=== PATIENT | female | born 1980 | race American Indian/Alaskan Native ===

== ENCOUNTER 2017-06-24 19:30 | Inpatient (IN) | payer MEDICAID ==
--- NOTE | 2017-06-24 20:02 | ED PDOC ---
Arrival/HPI - General Historian: Patient <Gt Nugent - Last Filed: 06/25/17 14:23> <Michoacano Dela Cruz - Last Filed: 06/28/17 09:46> - General Chief Complaint: Pain, Chronic Time Seen by Provider: 06/24/17 19:47 - History of Present Illness Narrative History of Present Illness (Text): 06/24/17 20:05 37 y/o female, send in from [facility] for admission and further evaluation, amoxicillin allergy, biba for admission due to she is unable to walk. pt. has been follow up by her own pmd for unable to walk with back pain and unable stand on her bilateral lower extremities since 06/12/2017, send to the ER because she is unable to stand with occasional pain, no palpitation, no rash, no numbness or tingling, no slurred speech or dizziness, no other medical or psychological complaints. (Gt Nugent) Past Medical History - Provider Review Nursing Documentation Reviewed: Yes - Psychiatric Hx Substance Use: No <Gt Nugent - Last Filed: 06/25/17 14:23> Family/Social History - Physician Review Nursing Documentation Reviewed: Yes Family/Social History: Unknown Family HX Smoking Status: n Hx Alcohol Use: No Hx Substance Use: No <Gt Nugent - Last Filed: 06/25/17 14:23> Allergies/Home Meds <Gt Nugent - Last Filed: 06/25/17 14:23> <Michoacano Dela Cruz - Last Filed: 06/28/17 09:46> Allergies/Adverse Reactions: Allergies amoxicillin Allergy (Verified 06/24/17 19:47) SHORTNESS OF BREATH Home Medications: Home Meds Medication Instructions Recorded Confirmed Cyclobenzaprine HCl 5 mg PO TID 06/25/17 06/25/17 [Cyclobenzaprine HCl] Folic Acid [Folic Acid] 1 mg PO DAILY 06/25/17 06/25/17 Thiamine HCl [B-1] 100 mg PO DAILY 06/25/17 06/25/17 Review of Systems - Review of Systems Constitutional: absent: Fatigue, Fevers Eyes: absent: Vision Changes ENT: absent: Hearing Changes Respiratory: absent: SOB, Cough Cardiovascular: absent: Chest Pain Gastrointestinal: absent: Abdominal Pain, Nausea, Vomiting Musculoskeletal: Back Pain. absent: Arthralgias Skin: absent: Rash, Pruritis Neurological: absent: Headache, Dizziness Psychiatric: absent: Anxiety, Depression, Suicidal Ideation <Gt Nugent - Last Filed: 06/25/17 14:23> Physical Exam Vital Signs Reviewed: Yes Temperature: Afebrile Blood Pressure: Normal Pulse: Regular Respiratory Rate: Normal Appearance: Positive for: Well-Appearing, Non-Toxic Pain Distress: Mild Mental Status: Positive for: Alert and Oriented X 3 - Systems Exam Head: Present: Atraumatic, Normocephalic Pupils: Present: PERRL Extroacular Muscles: Present: EOMI Conjunctiva: Present: Normal Mouth: Present: Moist Mucous Membranes Neck: Present: Normal Range of Motion Respiratory/Chest: Present: Clear to Auscultation, Good Air Exchange. No: Respiratory Distress, Accessory Muscle Use Cardiovascular: Present: Regular Rate and Rhythm, Normal S1, S2. No: Murmurs Abdomen: Present: Normal Bowel Sounds. No: Tenderness, Distention, Peritoneal Signs Back: Present: Normal Inspection Upper Extremity: Present: Normal Inspection. No: Cyanosis, Edema Lower Extremity: Present: Normal Inspection, NORMAL PULSES, Normal ROM, Capillary Refill < 2 s. No: Edema, CALF TENDERNESS, Tenderness, Swelling, Deformity Neurological: Present: GCS=15, Speech Normal, Motor Func Grossly Intact, Memory Normal, Other (Bilateral lower extremities motor 5/5. ) Skin: Present: Warm, Dry, Normal Color. No: Rashes Psychiatric: Present: Alert, Oriented x 3, Normal Insight, Normal Concentration <Gt Nugent - Last Filed: 06/25/17 14:23> Vital Signs Temp Pulse Resp BP Pulse Ox 06/25/17 03:00 78 16 128/82 100 06/24/17 23:30 80 18 135/82 100 06/24/17 19:40 98.8 F 97 H 18 133/70 99 Medical Decision Making - Lab Interpretations I have reviewed the lab results: Yes - RAD Interpretation Marriage And Family Teacher: Radiologist - EKG Interpretation Interpreted by ED Physician: Yes <Gt Nugent - Last Filed: 06/25/17 14:23> <Michoacano Dela Cruz - Last Filed: 06/28/17 09:46> ED Course and Treatment: 06/24/17 20:27 -Labs -CT head/lumbar -IVF -Observe and reassess 06/25/17 00:29 -I spoke to the covering doctor for Dr. Castellano (send the patient here to the ER ) which Dr. Monique is covering, request admission to the hospitalist for full neurological evaluation. -Labs are non-significant -Pt. refused pain med -CT Head: No definite acute intracranial abnormality. -CT Lumbar: Mild central canal stenosis L4-L5 level. Mild neuroforaminal narrowing at L4-L5, and L5-S1 levels. 06/25/17 02:10 -I spoke to DR. Peterson and DR. Dela Cruz about the case, agreed this needs to be observed over night as she should get neurological evaluation with possibility for MS or GBS. There is no emergency for spinal tap. (Gt Nugent) - Lab Interpretations Lab Results: 06/26/17 06:30 06/26/17 06:30 Lab Results 06/26/17 06:30: Total Creatine Kinase 54 06/26/17 06:30: Sodium 140, Potassium 4.0, Chloride 106, Carbon Dioxide 25, Anion Gap 13, BUN 8, Creatinine 0.7, Est GFR ( Amer) > 60, Est GFR (Non- Af Amer) > 60, Random Glucose 83, Calcium 9.3, Phosphorus 4.7 H, Magnesium 1.9, Total Bilirubin 0.5, AST 31, ALT 35, Alkaline Phosphatase 71, Total Protein 7.2 , Albumin 3.8, Globulin 3.3, Albumin/Globulin Ratio 1.1 06/26/17 06:30: WBC 6.2, RBC 3.45 L, Hgb 12.1, Hct 36.1, MCV 104.6, MCH 35.1 H, MCHC 33.5, RDW 13.8, Plt Count 389, MPV 10.2, Gran % 44.3 L, Lymph % (Auto) 44.2 H, [place] % (Auto) 8.8 H, Eos % (Auto) 2.1, Baso % (Auto) 0.6, Gran # 2.73, Lymph # 2.7, [place] # 0.5, Eos # 0.1, Baso # 0.04 06/25/17 08:00: TSH 3rd Generation 1.16 06/25/17 06:45: Urine Color Yellow, Urine Appearance Clear, Urine pH 6.0, Ur Specific [place] 1.025, Urine Protein Negative, Urine Glucose (UA) Negative, Urine Ketones 15 H, Urine Blood Trace-intact H, Urine Nitrate Negative, Urine Bilirubin Negative, Urine Urobilinogen 0.2, Ur Leukocyte Esterase Trace H, Urine RBC 0 - 2, Urine WBC 0 - 2, Ur Epithelial Cells 4 - 5, Urine Bacteria Few 06/25/17 06:20: WBC 6.5, RBC 3.38 L, Hgb 11.8 L, Hct 35.5 L, MCV 105.0, MCH 34.9 , MCHC 33.2, RDW 13.7, Plt Count 381, MPV 10.5, Gran % 54.4, Lymph % (Auto) 34.6 , [place] % (Auto) 9.1 H, Eos % (Auto) 1.7, Baso % (Auto) 0.2, Gran # 3.52, Lymph # 2.2, [place] # 0.6, Eos # 0.1, Baso # 0.01 06/25/17 06:20: Sodium 141, Potassium 4.1, Chloride 106, Carbon Dioxide 25, Anion Gap 14, BUN 11, Creatinine 0.7, Est GFR ( Amer) > 60, Est GFR (Non- Af Amer) > 60, Random Glucose 81, Calcium 9.4, Phosphorus 4.3, Magnesium 2.0, Total Bilirubin 0.4, AST 31, ALT 42, Alkaline Phosphatase 76, Total Creatine Kinase 62, Total Protein 7.1, Albumin 3.8, Globulin 3.3, Albumin/Globulin Ratio 1.2, Vitamin B12 690, Folate 11.0 06/24/17 20:40: Beta HCG, Quant < 2.39 06/24/17 20:40: WBC 7.2, RBC 3.53, Hgb 12.4, Hct 37.0, MCV 104.8, MCH 35.1 H, MCHC 33.5, RDW 13.6, Plt Count 388, MPV 10.2, Gran % 50.4, Lymph % (Auto) 38.0 H , [place] % (Auto) 8.9 H, Eos % (Auto) 2.1, Baso % (Auto) 0.6, Gran # 3.65, Lymph # 2.7, [place] # 0.6, Eos # 0.2, Baso # 0.04 06/24/17 20:40: Sodium 140, Potassium 3.9, Chloride 106, Carbon Dioxide 23, Anion Gap 15, BUN 13, Creatinine 0.7, Est GFR ( Amer) > 60, Est GFR (Non- Af Amer) > 60, Random Glucose 93, Calcium 9.5, Total Bilirubin 0.3, AST 33, ALT 40, Alkaline Phosphatase 80, Total Creatine Kinase 75, Total Protein 7.6, Albumin 4.0, Globulin 3.6, Albumin/Globulin Ratio 1.1 - RAD Interpretation Radiology Orders: 06/24/17 20:12 HEAD W/O CONTRAST [CT] Stat LUMBAR SPINE W/O CONTRAST [CT] Stat CHEST ONE VIEW [RAD] Stat 06/25/17 12:39 BRAIN W & WO CONTRAST [MRI] Routine CT Head: FINDINGS: Brain: No intracranial hemorrhage. No mass. No definite edema. Ventricles: No hydrocephalus. Bones/joints: No acute fracture. Soft tissues: Unremarkable. Sinuses: No acute sinusitis. Mastoid air cells: No mastoid effusion. Orbits: Unremarkable as visualized. IMPRESSION: 1. No definite acute intracranial abnormality. Thank you for allowing us to participate in the care of your patient. Dictated and Authenticated by: Kenn Dominguez MD 06/24/2017 11:34 PM Eastern Time ([place] & [place]) CT Lumbar: FINDINGS: Vertebrae: No acute fracture. Facet osteoarthrosis within lower lumbar spine. Discs/spinal canal/neural foramina: Mild central canal stenosis L4-L5 level. Mild neuroforaminal narrowing at L4-L5, and L5-S1 levels. Soft tissues: Partial ossification of anterior longitudinal ligament. IMPRESSION: 1. No fracture. 2. If symptoms persist, consider MRI for further evaluation. 3. Incidental/non-acute findings are described above. Thank you for allowing us to participate in the care of your patient. Dictated and Authenticated by: Kenn Dominguez MD 06/24/2017 11:41 PM Eastern Time ([place] & [place]) Chest xray: no active disease (Gt Nugent) - EKG Interpretation EKG Interpretation (Text): 06/25/17 01:17 (Gt Nugent) - Medication Orders Current Medication Orders: Acetaminophen/Butalbital/Caffeine (Fioricet) 1 tab PO Q4H PRN PRN Reason: Headache Docusate Sodium (Colace) 100 mg PO TID [facility] Last Admin: 06/27/17 18:16 Dose: 100 mg Last Bowel Movement Document 06/27/17 18:16 ID (Rec: 06/27/17 18:16 ID [id number]) Last Bowel Movement Last Bowel Movement 06/27/17 Famotidine (Pepcid) 20 mg PO 1000,2200 [facility] Last Admin: 06/27/17 23:37 Dose: Not Given Non-Admin Reason: Patient Refused Heparin Sodium (Porcine) (Heparin) 5,000 units SC Q8 ABHIJIT PRN Reason: Protocol Last Admin: 06/28/17 06:00 Dose: Immune Globulin 40 gm/ (Miscellaneous) 400 mls @ 1 mls/min IV DAILY ABHIJIT Stop: 06/29/17 23:55 Last Admin: 06/27/17 23:34 Dose: 1 mls/min eMAR Start Stop Document 06/27/17 23:34 [employer]OR [employer]CTION (Rec: 06/27/17 23:35 SUPERVISOR INSPECTION [id number]) Intravenous Solution Start Date 06/27/17 Start Time 23:35 Ibuprofen (Motrin Tab) 600 mg PO Q6H PRN PRN Reason: Pain, Mild (1-3) Last Admin: 06/27/17 01:11 Dose: 600 mg MAR Pain/Vitals Document 06/27/17 01:11 KP (Rec: 06/27/17 01:11 [id number]) Pain Reassessment Is This A Pain ReAssessment? No Sleep Is patient sleeping during reassessment? No Presence of Pain Presence of Pain Yes Location Pain Location Body Site Back Re-Assess: [facility] Pain/Vitals Document 06/27/17 02:11 KP (Rec: 06/27/17 03:00 KP [id number] Pain Reassessment Is This A Pain ReAssessment? Yes Sleep Is patient sleeping during reassessment? No Presence of Pain Presence of Pain No Discontinued Medications Ibuprofen (Motrin Tab) 600 mg PO STAT STA Stop: 06/25/17 01:16 Last Admin: 06/27/17 10:59 Dose: 600 mg [facility] Pain/Vitals Document 06/27/17 10:59 ID (Rec: 06/27/17 11:00 ID [id number]) Pain Reassessment Is This A Pain ReAssessment? No Sleep Is patient sleeping during reassessment? No Presence of Pain Presence of Pain Yes Pain Scale Used Pain Scale Used Numeric Location Pain Location Body Site Generalized Description Intermittent Scale Used Numeric Pain Behavior Moaning Facial Grimacing Alleviating Factors Medication Re-Assess: [facility] Pain/Vitals Document 06/27/17 11:59 ID (Rec: 06/27/17 12:39 ID [id number]) Pain Reassessment Is This A Pain ReAssessment? No Sleep Is patient sleeping during reassessment? No Presence of Pain Presence of Pain No - PA / OPHTHALMIC DISPENSER / Resident Statement / has reviewed & agrees with the documentation as recorded. <Gt Nugent - Last Filed: 06/25/17 14:23> - PA / OPHTHALMIC DISPENSER / Resident Statement / has reviewed & agrees with the documentation as recorded. <Michoacano Dela Cruz - Last Filed: 06/28/17 09:46> Disposition/Present on Arrival - Present on Arrival Any Indicators Present on Arrival: No History of DVT/PE: No History of Uncontrolled Diabetes: No Urinary Catheter: No History of Decub. Ulcer: No History Surgical Site Infection Following: None - Disposition Have Diagnosis and Disposition been Completed?: Yes Disposition Time: 00:30 Patient Plan: Observation <Gt Nugent - Last Filed: 06/25/17 14:23> <Michoacano Dela Cruz - Last Filed: 06/28/17 09:46> - Disposition Diagnosis: Low back pain, Spinal stenosis Disposition: HOSPITALIZED Patient Problems: Current Active Problems Problem Status Onset Low back pain Acute Spinal stenosis Acute Condition: STABLE
[2017-06-24 20:52] LABS: BASO # 0.04 K/mm3 (0.0-2.0); BASO % 0.6 % (0.0-3.0); EOS # 0.2 (0.0-0.7); EOS % 2.1 % (1.5-5.0); GRAN # 3.65 (1.4-6.5); GRAN % 50.4 % (50.0-68.0); LYMPH # 2.7 (1.2-3.4); MEAN CELL VOLUME 104.8 fl (80.0-105.0); MEAN CORPUSCULAR HEMOGLOBIN 35.1 pg (25.0-35.0); MEAN CORPUSCULAR HGB CONC 33.5 g/dl (31.0-37.0); MEAN PLATELET VOLUME 10.2 fl (7.0-11.0); MONO # 0.6 (0.1-0.6); MONO % 8.9 % (1.0-6.0); RED CELL DISTRIBUTION WIDTH 13.6 % (11.5-14.5); WHITE BLOOD COUNT 7.2 10^3/ul (4.5-11.0)
[2017-06-24 21:08] LABS: ALB/GLOB RATIO 1.1 (1.1-1.8); ALKALINE PHOSPHATASE 80 U/L (38-126); ALT/SGPT 40 U/L (7-56); AST/SGOT 33 U/L (14-36); BILIRUBIN,TOTAL 0.3 mg/dL (0.2-1.3); BLOOD UREA NITROGEN 13 mg/dL (7-21); CALCIUM 9.5 mg/dL (8.4-10.5); CARBON DIOXIDE 23 mmol/L (21-33); CHLORIDE 106 mmol/L (98-107); GFR AFRICAN-AMERICAN > 60; GLUCOSE,RANDOM 93 mg/dL (70-110); POTASSIUM 3.9 mmol/L (3.6-5.0); SODIUM 140 mmol/L (132-148); TOTAL PROTEIN 7.6 g/dL (5.8-8.3)
--- NOTE | 2017-06-24 23:34 | CT ---
EXAM: CT Head Without Intravenous Contrast CLINICAL HISTORY: 37 years old, female; Signs and symptoms; Walking, difficulty; Additional info: Unable to walk since 06/12/2017 TECHNIQUE: Axial computed tomography images of the head/brain without intravenous contrast. All CT scans at this facility use one or more dose reduction techniques, viz.: automated exposure control; ma/kV adjustment per patient size (including targeted exams where dose is matched to indication; i.e. head); or iterative reconstruction technique. COMPARISON: No relevant prior studies available. FINDINGS: Brain: No intracranial hemorrhage. No mass. No definite edema. Ventricles: No hydrocephalus. Bones/joints: No acute fracture. Soft tissues: Unremarkable. Sinuses: No acute sinusitis. Mastoid air cells: No mastoid effusion. Orbits: Unremarkable as visualized. IMPRESSION: 1. No definite acute intracranial abnormality.
--- NOTE | 2017-06-24 23:42 | CT ---
EXAM: CT Lumbar Spine Without Intravenous Contrast CLINICAL HISTORY: 37 years old, female; Signs and symptoms; Other: Unable to walk since 06/12/17; Additional info: Unable to walk since 06/12/2017 TECHNIQUE: Axial computed tomography images of the lumbar spine without intravenous contrast. All CT scans at this facility use one or more dose reduction techniques, viz.: automated exposure control; ma/kV adjustment per patient size (including targeted exams where dose is matched to indication; i.e. head); or iterative reconstruction technique. Coronal and sagittal reformatted images were created and reviewed. COMPARISON: No relevant prior studies available. FINDINGS: Vertebrae: No acute fracture. Facet osteoarthrosis within lower lumbar spine. Discs/spinal canal/neural foramina: Mild central canal stenosis L4-L5 level. Mild neuroforaminal narrowing at L4-L5, and L5-S1 levels. Soft tissues: Partial ossification of anterior longitudinal ligament. IMPRESSION: 1. No fracture. 2. If symptoms persist, consider MRI for further evaluation. 3. Incidental/non-acute findings are described above.
--- NOTE | 2017-06-25 04:38 | CP.PCM.HP ---
<Heena Cardenas - Last Filed: 06/25/17 04:29> History of Present Illness - History of Present Illness History of Present Illness: Heena Cardenas DO PGY1 - Internal Medicine H&P CC: Weak legs HPI: 37 yo F with no significant PMH presents to the ER by ambulance brought from [facility], complaining of progressive weakness in all four extremities. Weakness started 9 days ago, which was the last time she was able to walk. She was previously admitted to [facility] where she had an extensive workup done, which was reportedly negative. She was discharged from [facility] about one week ago and sent to [facility] for physical therapy. She reports continued inability to walk or bear weight on her legs beyond a few seconds, as well as progressive weakness in her arms. She denies any headache, vision changes, numbness, parasthesias. She reports that weakness is worse on the left side. She denies recent illness, travel, sick contacts, bug bites. She also denies any major life changes or new stressors. She is complaining of occasional back spasms that radiate from her head all the way to her toes, which she has had before, though is occuring more frequently; no constant back pain or pain with movements. She denies any fever, chills, nausea, vomiting, diarrhea, chest pain, shortness of breath, abdominal pain, dysuria, hematuria, joint pains, confusion, depression/anxiety, trouble sleeping, heat/cold intolerance, urinary/bowel incontinence, saddle anaesthesia. Remainder of 12 point ROS negative. The weakness was progressive in onset. PMH: None PSH: Denies Soc: Denies tobacco, alcohol, or illicits FHx: Denies All: Amoxicillin Present on Admission - Present on Admission Any Indicators Present on Admission: No Past Patient History - Past Social History Smoking Status: n - PSYCHIATRIC Hx Substance Use: No Meds Allergies/Adverse Reactions: Allergies Allergy/AdvReac Type Severity Reaction Status Date / Time amoxicillin Allergy SHORTNESS Verified 06/24/17 19:47 OF BREATH Physical Exam - Constitutional Appears: Non-toxic, No Acute Distress Additional comments: Morbidly obese - Head Exam Head Exam: ATRAUMATIC, NORMOCEPHALIC - Eye Exam Eye Exam: EOMI, Normal appearance, PERRL Pupil Exam: NORMAL ACCOMODATION - ENT Exam ENT Exam: Mucous Membranes Moist - Neck Exam Neck exam: Positive for: Full Rom, Normal Inspection. Negative for: Meningismus - Respiratory Exam Respiratory Exam: Clear to Auscultation Bilateral, NORMAL BREATHING PATTERN - Cardiovascular Exam Cardiovascular Exam: RRR, +S1, +S2 - GI/Abdominal Exam GI & Abdominal Exam: Normal Bowel Sounds, Soft. absent: Distended, Firm, Rebound, Rigid, Tenderness - Extremities Exam Extremities exam: Positive for: full ROM, normal inspection. Negative for: calf tenderness, joint swelling, pedal edema, tenderness - Back Exam Back exam: muscle spasm. 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 Sensation grossly intact, with good sharp/dull discrimination Patient is spontaneously moving and resting all four extremities normally, unconciously; when assessed directly, patient appears to have poor control of her movements - Psychiatric Exam Psychiatric exam: Normal Affect, Normal Mood - Skin Skin Exam: Dry, Intact, Normal Color Results - Vital Signs Recent Vital Signs: Last Vital Signs Temp 98.8 F 06/24/17 19:40 Pulse 78 06/25/17 03:00 Resp 16 06/25/17 03:00 BP 128/82 06/25/17 03:00 Pulse Ox 100 06/25/17 03:00 - Labs Result Diagrams: 06/24/17 20:40 06/24/17 20:40 Assessment & Plan - Assessment and Plan (Free Text) Assessment: 37 yo F with no significant PMH who presents for quadriparesis, progressive, for the past 9 days. Previously worked up at [facility] and was undergoing physical therapy at [facility] in [facility] Plan Quadriparesis - Patient has total inability to bear her own weight, walk, or exhibit strength or fine motor control of b/l UE, with marked L finger to nose dysmetria; started 9 days ago - CT head and lumbar spine in ER negative - Intake labs and vital signs unremarkable - Will attempt to obtain prior records from [facility] prior to further workup; consider spinal tap if not previously done to r/o infection, GBS - High risk fall precautions - PT/OT eval and treat - Neurology consult requested, appreciate recs GI/DVT Ppx - Pepcid, heparin Patient seen, discussed, and reviewed with attending <Katya Peterson - Last Filed: 06/25/17 05:41> Results - Vital Signs Recent Vital Signs: Last Vital Signs Temp 98.2 F 06/25/17 04:27 Pulse 102 H 06/25/17 04:27 Resp 20 06/25/17 04:27 BP 145/99 H 06/25/17 04:27 Pulse Ox 100 06/25/17 03:00 - Labs Result Diagrams: 06/24/17 20:40 06/24/17 20:40 Attending/Attestation - Attestation I have personally seen and examined this patient.: Yes I have fully participated in the care of the patient.: Yes I have reviewed all pertinent clinical information: Yes Notes (Text): 06/25/17 05:41 Patient was seen in room # 9 when she was in the ER. Agree with history, physical examination, assessment and plan.
[2017-06-25 07:01] LABS: ALB/GLOB RATIO 1.2 (1.1-1.8); ALKALINE PHOSPHATASE 76 U/L (38-126); ALT/SGPT 42 U/L (7-56); AST/SGOT 31 U/L (14-36); BILIRUBIN,TOTAL 0.4 mg/dL (0.2-1.3); BLOOD UREA NITROGEN 11 mg/dL (7-21); CALCIUM 9.4 mg/dL (8.4-10.5); CARBON DIOXIDE 25 mmol/L (21-33); CHLORIDE 106 mmol/L (98-107); GFR AFRICAN-AMERICAN > 60; GLUCOSE,RANDOM 81 mg/dL (70-110); PHOSPHOROUS 4.3 mg/dL (2.5-4.5); POTASSIUM 4.1 mmol/L (3.6-5.0); SODIUM 141 mmol/L (132-148); TOTAL PROTEIN 7.1 g/dL (5.8-8.3)
[2017-06-25 07:17] LABS: BASO # 0.01 K/mm3 (0.0-2.0); BASO % 0.2 % (0.0-3.0); EOS # 0.1 (0.0-0.7); EOS % 1.7 % (1.5-5.0); GRAN # 3.52 (1.4-6.5); GRAN % 54.4 % (50.0-68.0); HEMATOCRIT 35.5 % (36.0-48.0); LYMPH # 2.2 (1.2-3.4); LYMPH % 34.6 % (22.0-35.0); MEAN CORPUSCULAR HEMOGLOBIN 34.9 pg (25.0-35.0); MEAN CORPUSCULAR HGB CONC 33.2 g/dl (31.0-37.0); MEAN PLATELET VOLUME 10.5 fl (7.0-11.0); MONO # 0.6 (0.1-0.6); MONO % 9.1 % (1.0-6.0); RED CELL DISTRIBUTION WIDTH 13.7 % (11.5-14.5); WHITE BLOOD COUNT 6.5 10^3/ul (4.5-11.0)
[2017-06-25 07:18] LABS: URINE BILIRUBIN NEGATIVE (NEGATIVE); URINE BLOOD TRACE-INTACT (NEGATIVE); URINE GLUCOSE (UA) NEGATIVE (NEGATIVE); URINE KETONE 15 mg/dL (NEGATIVE); URINE LEUKOCYTE ESTERASE TRACE Leu/uL (NEGATIVE); URINE PROTEIN NEGATIVE mg/dL (<30 mg/dL); URINE UROBILINOGEN 0.2 E.U./dL (<1 E.U./dL)
[2017-06-25 07:46] LABS: URINE APPEARANCE CLEAR (CLEAR); URINE BACTERIA FEW (NEG); URINE COLOR YELLOW (YELLOW); URINE RBC 0 - 2 /hpf (0-2); URINE WBC 0 - 2 /hpf (0-6)
--- NOTE | 2017-06-25 13:45 | RAD ---
PROCEDURE: CHEST RADIOGRAPH, 1 VIEW HISTORY: medical clearance COMPARISON: None available. FINDINGS: LUNGS: Clear. PLEURA: No pneumothorax or pleural fluid seen. CARDIOVASCULAR: Normal. OSSEOUS STRUCTURES: No significant abnormalities. VISUALIZED UPPER ABDOMEN: Normal. OTHER FINDINGS: None. IMPRESSION: No active disease.
[2017-06-25] MEDS ORDERED: Gadodiamide 287 MG/ML VIAL (20ML) IV ONE (13:54)
--- NOTE | 2017-06-25 16:08 | MRI ---
PROCEDURE: MRI of the brain dated 06/25/2017. HISTORY: Ataxia. COMPARISON: Comparison made with CT scan brain dated 06/24/2017. TECHNIQUE: Multiplanar, multisequence MR images of the brain were obtained with and without intravenous contrast enhancement. 20 cc Omniscan injected during this procedure. FINDINGS: HEMORRHAGE: No acute parenchymal, subarachnoid nor extra-axial hemorrhage. No evidence of hemosiderin deposition identified on gradient echo weighted sequence. DWI: No evidence of an acute or early subacute infarction seen on diffusion imaging. . BRAIN PARENCHYMA: No focal areas of abnormal signal seen within the substance of the brain. No evidence of enhancing parenchymal nor extra-axial masses or collections. No evidence of unusual meningeal enhancement. . Ventricular and sulcal size within range of normal for this patient's stated age. ENHANCEMENT: No abnormal intracranial enhancement as above. . VENTRICLES: No obstructive hydrocephalus. CRANIUM: There are no acute calvarial abnormalities. ORBITS: Orbits and contents appear grossly unremarkable. PARANASAL SINUSES/MASTOIDS: Clear VASCULAR SYSTEM: The visualized major vascular flow voids at skull base patent. OTHER FINDINGS: None . IMPRESSION: No acute intracranial hemorrhage or infarct. There are no enhancing lesions.
--- NOTE | 2017-06-25 22:24 | CON ---
HISTORY OF PRESENT ILLNESS: This is a 37-year-old black female with no significant past medical history, came here from long term and with a progressive complaining of weakness and the patient was previously admitted to [facility], workup done, was discharged to long term and there she felt weakness and numbness and paresthesia and brought back to [facility]. MRI of the head was done, did not show any intracranial lesion. PAST MEDICAL HISTORY: Not significant. SOCIAL HISTORY: Does not smoke. Does not drink. ALLERGY: ALLERGIC TO AMOXICILLIN. PHYSICAL EXAMINATION: VITAL SIGNS: Blood pressure 128/82. HEENT: Normocephalic, atraumatic. NECK: Supple. NEUROLOGIC: Awake, alert, oriented x3. No aphasia. Cranial nerves II through XII were tested. Pupils reactive. EOM intact. No facial asymmetry. Tongue midline. Motor examination: Spontaneous movement of the extremities noted. Deep tendon reflexes 1+. Both plantars are downgoing. Sensory appears intact. Cerebellar gait deferred. IMPRESSION: A 37-year-old black female who was recently discharged from [facility] to [facility], undergoing physical therapy, felt weak, brought here for further workup. MRI of the head was done, which was reported negative. Workup in progress. We will follow up. Christiano Rose MD
[2017-06-26 07:14] LABS: BASO # 0.04 K/mm3 (0.0-2.0); BASO % 0.6 % (0.0-3.0); EOS # 0.1 (0.0-0.7); EOS % 2.1 % (1.5-5.0); GRAN # 2.73 (1.4-6.5); GRAN % 44.3 % (50.0-68.0); HEMATOCRIT 36.1 % (36.0-48.0); LYMPH # 2.7 (1.2-3.4); LYMPH % 44.2 % (22.0-35.0); MEAN CELL VOLUME 104.6 fl (80.0-105.0); MEAN CORPUSCULAR HEMOGLOBIN 35.1 pg (25.0-35.0); MEAN CORPUSCULAR HGB CONC 33.5 g/dl (31.0-37.0); MEAN PLATELET VOLUME 10.2 fl (7.0-11.0); MONO # 0.5 (0.1-0.6); MONO % 8.8 % (1.0-6.0); RED CELL DISTRIBUTION WIDTH 13.8 % (11.5-14.5); WHITE BLOOD COUNT 6.2 10^3/ul (4.5-11.0)
[2017-06-26 08:03] LABS: ALB/GLOB RATIO 1.1 (1.1-1.8); ALKALINE PHOSPHATASE 71 U/L (38-126); ALT/SGPT 35 U/L (7-56); AST/SGOT 31 U/L (14-36); BILIRUBIN,TOTAL 0.5 mg/dL (0.2-1.3); BLOOD UREA NITROGEN 8 mg/dL (7-21); CALCIUM 9.3 mg/dL (8.4-10.5); CARBON DIOXIDE 25 mmol/L (21-33); CHLORIDE 106 mmol/L (98-107); GFR AFRICAN-AMERICAN > 60; GLUCOSE,RANDOM 83 mg/dL (70-110); MAGNESIUM 1.9 mg/dL (1.7-2.2); PHOSPHOROUS 4.7 mg/dL (2.5-4.5); SODIUM 140 mmol/L (132-148); TOTAL PROTEIN 7.2 g/dL (5.8-8.3)
--- NOTE | 2017-06-26 11:37 | CP.PCM.PN ---
<Rody Garibay - Last Filed: 06/26/17 11:51> Subjective - Date & Time of Evaluation Date of Evaluation: 06/26/17 Time of Evaluation: 11:33 - Subjective Subjective: Rody Garibay, PGY1, Medicine Progress Note for Dr Mcdonald: Patient seen and examined at bedside. As per nursing staff, pt wants to go back to subacute rehab. No acute events overnight. Denies muscle spasms currently, weakness, nausea, vomiting, food intolerance, fatigue, numbness, tingling. 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 Objective - Vital Signs/Intake and Output Vital Signs (last 24 hours): Temp Pulse Resp BP Pulse Ox 98.9 F 91 H 20 132/83 96 06/26/17 10:47 06/26/17 10:47 06/26/17 10:47 06/26/17 10:47 06/26/17 10:47 Intake and Output: 06/26/17 06/26/17 06:59 18:59 Intake Total 240 Balance 240 - Medications Medications: Current Medications Docusate Sodium (Colace) 100 mg PO TID [facility] Last Admin: 06/26/17 10:18 Dose: 100 mg Famotidine (Pepcid) 20 mg PO 1000,2200 [facility] Last Admin: 06/26/17 10:23 Dose: Not Given Heparin Sodium (Porcine) (Heparin) 5,000 units SC Q8 ABHIJIT PRN Reason: Protocol Last Admin: 06/26/17 06:16 Dose: Not Given Ibuprofen (Motrin Tab) 600 mg PO Q6H PRN PRN Reason: Pain, Mild (1-3) Last Admin: 06/25/17 20:49 Dose: 600 mg - Labs Labs: 06/26/17 06:30 06/26/17 06:30 - Constitutional Appears: Non-toxic, No Acute Distress, Older Than Stated Age - Head Exam Head Exam: ATRAUMATIC, NORMOCEPHALIC - Eye Exam Eye Exam: EOMI, PERRL. absent: Conjunctival injection, Nystagmus, Scleral icterus Pupil Exam: NORMAL ACCOMODATION, PERRL. absent: Irregular, Unequal - ENT Exam ENT Exam: Mucous Membranes Moist - Neck Exam Neck Exam: Full ROM - Respiratory Exam Respiratory Exam: Clear to Ausculation Bilateral. absent: Accessory Muscle Use , Chest Wall Tenderness, Decreased Breath Sounds, Respiratory Distress - Cardiovascular Exam Cardiovascular Exam: RRR, +S1, +S2. absent: Murmur - GI/Abdominal Exam GI & Abdominal Exam: Soft, Normal Bowel Sounds. absent: Distended, Tenderness, Mass, Organomegaly, Rebound - Extremities Exam Extremities Exam: Normal Inspection. absent: Calf Tenderness, Pedal Edema - Neurological Exam Neurological Exam: Alert, Awake, CN II-XII Intact, Oriented x3, Reflexes Normal Additional comments: + motor strength 5/5 b/l + Gross sensation intact throughout. 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 Back/body spasms, Inability to ambulate: 2/2 trauma related vs MS vs polymyositis vs Lyme disease vs Vit B12,D, folate deficiency vs hypothyroidism vs acute CVA vs other demyelinating condition (ALS ) vs spine related neuropathy vs psychogenic - Patient has inability to walk and has marked L finger to nose dysmetria; started 9 days ago - Motor strength and sensation intact b/l. - CXR unremarkable. CT head neg. MRI brain neg for any lesions. - lumbar spine shows spinal canal stenosis L4-L5, no herniations. - As per PT, pt was able to stand up yesterday, however, has leg coordination issues. recommend YAMILETH. Will f/u with PT for reeval today since patient states that she feels better and has no spams today. - Vitamin B12, folate and TSH all within normal limits. - Awaiting prior records from [facility], will determine further workup then - Will attempt to obtain prior records from [facility] prior to further workup; consider spinal tap if not previously done to r/o infection, GBS - Consider Lyme serology, HIV/syphilis workup, CPK. - High risk fall precautions - Neurology consult requested, patient is well known to dr Rose from previous admission at [facility]. Awaiting further workup. - If no change in patient's status by PT and no further neuro workup, consider psych eval. GI/DVT Ppx - Pepcid, heparin Patient seen, discussed, and reviewed with Dr Mcdonald. Rody Garibay, PGY1 <Jasen Mcdonald - Last Filed: 06/26/17 16:15> Objective - Vital Signs/Intake and Output Vital Signs (last 24 hours): Temp Pulse Resp BP Pulse Ox 98.9 F 105 H 20 132/83 99 06/26/17 10:47 06/26/17 15:32 06/26/17 10:47 06/26/17 10:47 06/26/17 15:32 Intake and Output: 06/26/17 06/26/17 06:59 18:59 Intake Total 240 Balance 240 - Medications Medications: Current Medications Docusate Sodium (Colace) 100 mg PO TID [facility] Last Admin: 06/26/17 13:13 Dose: 100 mg Famotidine (Pepcid) 20 mg PO 1000,2200 [facility] Last Admin: 06/26/17 10:23 Dose: Not Given Heparin Sodium (Porcine) (Heparin) 5,000 units SC Q8 ABHIJIT PRN Reason: Protocol Last Admin: 06/26/17 13:06 Dose: Not Given Ibuprofen (Motrin Tab) 600 mg PO Q6H PRN PRN Reason: Pain, Mild (1-3) Last Admin: 06/26/17 13:14 Dose: 600 mg - Labs Labs: 06/26/17 06:30 06/26/17 06:30 Attending/Attestation - Attestation I have personally seen and examined this patient.: Yes I have fully participated in the care of the patient.: Yes I have reviewed all pertinent clinical information, including history, physical exam and plan: Yes Notes (Text): 06/26/17 16:11 37 year old female with no significant past medical history who presented with body spasms and difficulty with ambulation. She was previously worked up at [facility] and then sent to [facility] from where she was referred due to persistent symptoms. CT head and MRI brain were negative for acute findings. CT spine showed L4-L5 spinal canal stenosis. PT and OT evaluation were appreciated. Patient was also seen by neurology who recommended for possible LP. Jasen Mcdonald MD Hospitalist.
[2017-06-27 07:26] LABS: BASO # 0.03 K/mm3 (0.0-2.0); BASO % 0.5 % (0.0-3.0); EOS # 0.1 (0.0-0.7); EOS % 2.1 % (1.5-5.0); GRAN # 2.79 (1.4-6.5); GRAN % 47.7 % (50.0-68.0); HEMATOCRIT 36.5 % (36.0-48.0); LYMPH # 2.4 (1.2-3.4); MEAN CORPUSCULAR HEMOGLOBIN 35.3 pg (25.0-35.0); MEAN PLATELET VOLUME 10.2 fl (7.0-11.0); MONO # 0.5 (0.1-0.6); MONO % 8.7 % (1.0-6.0); RED CELL DISTRIBUTION WIDTH 13.7 % (11.5-14.5); WHITE BLOOD COUNT 5.9 10^3/ul (4.5-11.0)
[2017-06-27 07:34] LABS: ALB/GLOB RATIO 1.1 (1.1-1.8); ALKALINE PHOSPHATASE 70 U/L (38-126); ALT/SGPT 38 U/L (7-56); AST/SGOT 26 U/L (14-36); BILIRUBIN,TOTAL 0.3 mg/dL (0.2-1.3); BLOOD UREA NITROGEN 9 mg/dL (7-21); CALCIUM 9.3 mg/dL (8.4-10.5); CARBON DIOXIDE 25 mmol/L (21-33); CHLORIDE 105 mmol/L (98-107); GFR AFRICAN-AMERICAN > 60; GLUCOSE,RANDOM 90 mg/dL (70-110); SODIUM 139 mmol/L (132-148); TOTAL PROTEIN 7.1 g/dL (5.8-8.3)
--- NOTE | 2017-06-27 12:55 | CP.PCM.PN ---
<Rody Garibay - Last Filed: 06/27/17 12:51> Subjective - Date & Time of Evaluation Date of Evaluation: 06/27/17 Time of Evaluation: 12:51 - Subjective Subjective: Rody Garibay, PGY1, Medicine Progress Note for Dr Mcdonald: Patient seen and examined at bedside. No acute events overnight. Pt reports some back muscle spasm and lower extremities muscle spasms this AM, however currently denies. She states that Motrin is helping her to reduce the inflammation, does not want Flexeril or Baclofen. Yesterday, she was only able to stand up barely with PT, and did leg exercises in the bed itself. Was not able to walk. Denies weakness, numbness, tingling, fever, chills. Objective - Vital Signs/Intake and Output Vital Signs (last 24 hours): Temp Pulse Resp BP Pulse Ox 97.8 F 99 H 20 112/72 99 06/27/17 07:30 06/27/17 07:30 06/27/17 07:30 06/27/17 07:30 06/27/17 07:30 Intake and Output: 06/27/17 06/27/17 06:59 18:59 Intake Total 0 Output Total 0 Balance 0 - Medications Medications: Current Medications Docusate Sodium (Colace) 100 mg PO TID [facility] Last Admin: 06/27/17 10:58 Dose: 100 mg Famotidine (Pepcid) 20 mg PO 1000,2200 [facility] Last Admin: 06/27/17 10:58 Dose: 20 mg Heparin Sodium (Porcine) (Heparin) 5,000 units SC Q8 ABHIJIT PRN Reason: Protocol Last Admin: 06/27/17 05:01 Dose: Not Given Ibuprofen (Motrin Tab) 600 mg PO Q6H PRN PRN Reason: Pain, Mild (1-3) Last Admin: 06/27/17 01:11 Dose: 600 mg - Labs Labs: 06/27/17 06:45 06/27/17 06:45 - Additional Findings Additional findings: - Constitutional Appears: Non-toxic, No Acute Distress, Older Than Stated Age - Head Exam Head Exam: ATRAUMATIC, NORMOCEPHALIC - Eye Exam Eye Exam: EOMI, PERRL. absent: Conjunctival injection, Nystagmus, Scleral icterus Pupil Exam: NORMAL ACCOMODATION, PERRL. absent: Irregular, Unequal - ENT Exam ENT Exam: Mucous Membranes Moist - Neck Exam Neck Exam: Full ROM - Respiratory Exam Respiratory Exam: Clear to Ausculation Bilateral. absent: Accessory Muscle Use , Chest Wall Tenderness, Decreased Breath Sounds, Respiratory Distress - Cardiovascular Exam Cardiovascular Exam: RRR, +S1, +S2. absent: Murmur - GI/Abdominal Exam GI & Abdominal Exam: Soft, Normal Bowel Sounds. absent: Distended, Tenderness, Mass, Organomegaly, Rebound - Extremities Exam Extremities Exam: Normal Inspection. absent: Calf Tenderness, Pedal Edema - Neurological Exam Neurological Exam: Alert, Awake, CN II-XII Intact, Oriented x3, Reflexes Normal Additional comments: + motor strength 5/5 b/l + Gross sensation intact throughout. 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 - CXR unremarkable. CT head neg. MRI brain neg for any lesions. - lumbar spine shows spinal canal stenosis L4-L5, no herniations. - As per PT, pt was able to stand up, however, has leg coordination issues. recommend YAMILETH. - Vitamin B12, folate and TSH all within normal limits. - Received prior records from [facility], MRI head was normal and Lumbar MRI showed congential narrowing of lumbar spinal canal. No other serologic workup done. - F/u HIV ab and rpr. - Consider Lyme serology, CPK. - High risk fall precautions - Neurology consult requested, patient is well known to dr Rose from previous admission at [facility]. Discussed case with Dr Rose, will perform spinal tap to r/o infection, GBS. Appreciate help. - PT reeval 06/26 recommends YAMILETH. - Consider psych eval if LP and other serologic workup is negative. GI/DVT Ppx - Pepcid, heparin Patient seen, discussed, and reviewed with Dr Mcdonald. Rody Garibay, PGY1 <Jasen Mcdonald A - Last Filed: 06/27/17 13:20> Objective - Vital Signs/Intake and Output Vital Signs (last 24 hours): Temp Pulse Resp BP Pulse Ox 97.8 F 99 H 20 112/72 99 06/27/17 07:30 06/27/17 07:30 06/27/17 07:30 06/27/17 07:30 06/27/17 07:30 Intake and Output: 06/27/17 06/27/17 06:59 18:59 Intake Total 0 Output Total 0 Balance 0 - Medications Medications: Current Medications Docusate Sodium (Colace) 100 mg PO TID [facility] Last Admin: 06/27/17 10:58 Dose: 100 mg Famotidine (Pepcid) 20 mg PO 1000,2200 [facility] Last Admin: 06/27/17 10:58 Dose: 20 mg Heparin Sodium (Porcine) (Heparin) 5,000 units SC Q8 ABHIJIT PRN Reason: Protocol Last Admin: 06/27/17 05:01 Dose: Not Given Ibuprofen (Motrin Tab) 600 mg PO Q6H PRN PRN Reason: Pain, Mild (1-3) Last Admin: 06/27/17 01:11 Dose: 600 mg - Labs Labs: 06/27/17 06:45 06/27/17 06:45 Attending/Attestation - Attestation I have personally seen and examined this patient.: Yes I have fully participated in the care of the patient.: Yes I have reviewed all pertinent clinical information, including history, physical exam and plan: Yes Notes (Text): 06/27/17 13:19 37 year old female with no significant past medical history who presented with body spasms and difficulty with ambulation. She was previously worked up at [facility] and then sent to [facility] from where she was referred due to persistent symptoms. CT head and MRI brain were negative for acute findings. CT spine showed L4-L5 spinal canal stenosis. PT and OT evaluation were appreciated. She is also being followed by neurology ; plan is for possible LP. Jasen Mcdonald MD Hospitalist.
[2017-06-27] MEDS ORDERED: Apap-Butalbital-Caffeine 325-50-40mg Tab PO PRN (15:55)
--- NOTE | 2017-06-27 19:56 | PN ---
DATE: SUBJECTIVE: This is a 37-year-old black female who was recently discharged from the [facility], who went to [facility], undergoing physical therapy, felt weak, transferred here to [facility]. She had MRI of the head, which was reported negative, but the patient still have difficulty ambulating and looks like she does not decreased in the lower limbs and wanted to do spinal tap, the patient refused. So, I spoke to Dr. Mcdonald, for consult from Infectious Disease and start IVIG for three days and continue physical therapy. We will follow up. Christiano Rose MD
[2017-06-27] MEDS: PREMIXED IV SCH (23:34)
[2017-06-27] MEDS: IMMUNE GLOBULIN IV SCH (23:34)
--- NOTE | 2017-06-28 00:29 | CON ---
DATE: 06/27/2017 LOCATION: The patient is seen in room 569. CHIEF COMPLAINT: Weakness times several weeks. HISTORY OF PRESENT ILLNESS: This is a 37-year-old morbidly obese female with BMI of 42 with no significant past medical history who was hospitalized in [facility], she reported same symptoms of weakness and ataxia. She had been worked up including MRI, imaging as per the patient and all was negative. Has significant amount of blood workup done according to the patient. REVIEW OF SYSTEMS: Reveals no fevers and no chills. She does have back spasm. No abdominal pain, diarrhea, or constipation. Minimal joint pain. No headaches at this time. She states she did have headache at [facility]. PAST MEDICAL HISTORY: Significant for morbid obesity with BMI of 41 and spinal stenosis. PAST SURGICAL HISTORY: Noncontributory. ALLERGIES: THE PATIENT STATES SHE IS ALLERGIC TO AMOXICILLIN. THE TYPE OF ALLERGY IS NOT CLEAR. MEDICATIONS: She takes vitamin B12, folic acid and thiamine was given at [facility]. PHYSICAL EXAMINATION GENERAL: She is in bed, answering question. VITAL SIGNS: With temperature of 98, blood pressure of 95/60, respiratory rate of 20, and heart rate of 105. HEENT: Examination of HEENT is unremarkable. NECK: Supple. LUNGS: Have decreased breath sounds. HEART: Normal S1 and S2. ABDOMEN: Soft and nontender. NEUROLOGIC: Motor function is 5/5. She states she cannot climb out of bed due to her morbid obesity. LABORATORY DATA: WBC count of 5.9, hemoglobin of 12, and platelets of 373. The patient's sedimentation rate is 40. She does have an MCV of 105 and hemoglobin of 11.8. BUN of 11 and creatinine of 0.7. Vitamin B12 is 690, folate is 11, and TSH is 1.16. Beta hCG is negative. Urinalysis is negative. IMAGING DATA: MRI of the head is negative. CAT scan of the head is negative. Chest x-ray reported to be clear. Dr. Mcdonald's note is reviewed. ASSESSMENT ADN PLAN: This is a 37-year-old female with morbid obesity and spinal stenosis had been admitted with weakness and ataxia. Full neurology exam has discussed with Dr. Hardik Rose and Dr. Christiano Rose the Neurologist on the case. The etiology of ataxia is unclear. The patient has macrocytic anemia with MCV of 105 with denying history of any alcoholism, had a folate and B12 level in [place], which were normal. We will order a HIV test, C-reactive protein, and sedimentation rate of 40. We would recommend vasculitis workup NICOLA, and lupus workup. We will ordered an RPR and FTA, HIV PCR line. We will order a methylmalonic acid for better evaluation of the folate level. We will order Whipple's DNA and anti-veliz antibody and double stranded DNA for lupus and we will order a flow cytometry of blood, must rule out myelodysplastic syndrome cause of macrocytic anemia and the patient has normal folate and normal B12 levels. MRI of the spine is scheduled. We would also recommend an electroencephalogram and spinal tap. No need for antibiotics at this point. No evidence of any active infection. We will also order blood cultures and will follow closely with you. Case discussed with residents, Dr. Rose and Dr. Mcdonald. Ricardo Evans MD
[2017-06-28 07:18] LABS: BASO # 0.02 K/mm3 (0.0-2.0); BASO % 0.4 % (0.0-3.0); EOS # 0.1 (0.0-0.7); EOS % 1.7 % (1.5-5.0); GRAN # 2.29 (1.4-6.5); GRAN % 48.4 % (50.0-68.0); HEMATOCRIT 35.8 % (36.0-48.0); LYMPH % 41.1 % (22.0-35.0); MEAN CELL VOLUME 104.1 fl (80.0-105.0); MEAN CORPUSCULAR HEMOGLOBIN 34.6 pg (25.0-35.0); MEAN CORPUSCULAR HGB CONC 33.2 g/dl (31.0-37.0); MEAN PLATELET VOLUME 10.3 fl (7.0-11.0); MONO # 0.4 (0.1-0.6); MONO % 8.4 % (1.0-6.0); RED CELL DISTRIBUTION WIDTH 13.8 % (11.5-14.5); WHITE BLOOD COUNT 4.7 10^3/ul (4.5-11.0)
[2017-06-28 07:54] LABS: ALB/GLOB RATIO 0.9 (1.1-1.8); ALKALINE PHOSPHATASE 75 U/L (38-126); ALT/SGPT 30 U/L (7-56); AST/SGOT 36 U/L (14-36); BILIRUBIN,TOTAL 0.5 mg/dL (0.2-1.3); BLOOD UREA NITROGEN 9 mg/dL (7-21); CALCIUM 9.6 mg/dL (8.4-10.5); CARBON DIOXIDE 25 mmol/L (21-33); CHLORIDE 105 mmol/L (98-107); GFR AFRICAN-AMERICAN > 60; GLUCOSE,RANDOM 85 mg/dL (70-110); POTASSIUM 3.9 mmol/L (3.6-5.0); SODIUM 139 mmol/L (132-148); TOTAL PROTEIN 7.7 g/dL (5.8-8.3)
[2017-06-28] MEDS: PREMIXED IV SCH (14:13)
[2017-06-28] MEDS: IMMUNE GLOBULIN IV SCH (14:13)
--- NOTE | 2017-06-28 18:09 | CP.PCM.PN ---
<Rody Garibay - Last Filed: 06/28/17 18:05> Subjective - Date & Time of Evaluation Date of Evaluation: 06/28/17 Time of Evaluation: 18:05 - Subjective Subjective: Rody Garibay, PGY1, Medicine Progress Note for Dr Mcdonald: Patient seen and examined at bedside. Patient refused Lumbar puncture yesterday (she is afraid of the complications of bleeding, infection or ) - the risks and benefits of the procedure were well explained to her. She states that she needs time to think about it. Pt still c/o incoordination of her hands and inability to walk. She states that her muscle spasms are unchanged, but would like avoid all medications as possible (she never took medications all her life and states thats the reason the meds dont suit her). She denies weakness, fatigue, nausea, vomiting. Objective - Vital Signs/Intake and Output Vital Signs (last 24 hours): Temp Pulse Resp BP Pulse Ox 98.2 F 97 H 18 141/89 98 06/28/17 16:49 06/28/17 16:49 06/28/17 16:49 06/28/17 16:49 06/28/17 16:49 Intake and Output: 06/28/17 06/28/17 06:59 18:59 Intake Total 420 960 Balance 420 960 - Medications Medications: Current Medications Acetaminophen/Butalbital/Caffeine (Fioricet) 1 tab PO Q4H PRN PRN Reason: Headache Docusate Sodium (Colace) 100 mg PO TID [facility] Last Admin: 06/28/17 17:07 Dose: 100 mg Famotidine (Pepcid) 20 mg PO 1000,2200 [facility] Last Admin: 06/28/17 11:03 Dose: Not Given Heparin Sodium (Porcine) (Heparin) 5,000 units SC Q8 ABHIJIT PRN Reason: Protocol Last Admin: 06/28/17 13:48 Dose: 5,000 units Immune Globulin 40 gm/ (Miscellaneous) 400 mls @ 1 mls/min IV DAILY [facility] Stop: 06/29/17 23:55 Last Admin: 06/28/17 14:13 Dose: 1 mls/min Ibuprofen (Motrin Tab) 600 mg PO Q6H PRN PRN Reason: Pain, Mild (1-3) Last Admin: 06/28/17 13:48 Dose: 600 mg - Labs Labs: 06/28/17 06:30 06/28/17 06:30 - Constitutional Appears: Non-toxic, No Acute Distress - Head Exam Head Exam: ATRAUMATIC, NORMOCEPHALIC - Eye Exam Eye Exam: EOMI, PERRL Pupil Exam: NORMAL ACCOMODATION, PERRL - ENT Exam ENT Exam: Mucous Membranes Moist - Neck Exam Neck Exam: Full ROM - Respiratory Exam Respiratory Exam: Clear to Ausculation Bilateral. absent: Accessory Muscle Use , Respiratory Distress - Cardiovascular Exam Cardiovascular Exam: RRR, +S1, +S2. absent: Murmur - GI/Abdominal Exam GI & Abdominal Exam: Soft, Normal Bowel Sounds. absent: Distended, Tenderness, Mass, Organomegaly, Rebound - Extremities Exam Extremities Exam: absent: Calf Tenderness, Pedal Edema - Back Exam Back Exam: NORMAL INSPECTION - Neurological Exam Neurological Exam: Alert, Awake, CN II-XII Intact, Oriented x3 Neuro motor strength exam: Left Upper Extremity: 5, Right Upper Extremity: 5, Left Lower Extremity: 5, Right Lower Extremity: 5 Additional comments: + discoordinating movements of bilateral fingers. 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 - CXR unremarkable. CT head neg. MRI brain neg for any lesions. - lumbar spine shows spinal canal stenosis L4-L5, no herniations. - As per PT, pt was able to stand up, however, has leg coordination issues. recommend YAMILETH. - Vitamin B12, folate and TSH all within normal limits. - Received prior records from [facility], MRI head was normal and Lumbar MRI showed congential narrowing of lumbar spinal canal. No other serologic workup done. - Rpr NR. - ID consulted. appreciate recs. F/u lupus, antiphospholipid ab, Lyme disease, treponema serology, MMA, NICOLA. - Heme consulted for macrocytic anemia. Pt not an alcoholic or found to be B12/ folate deficient. Consider MDS, f/u recs. - High risk fall precautions - Neurology consult requested, patient is well known to dr Rose from previous admission at [facility]. Pt refused spinal tap. will reconsider. Appreciate recs. IVIG started as per Neuro. Patient will receive 2 days of IViG. Pharmacy called to state that they do not have IVIg for 3rd day on 06/29. Will try to arrange for IVIG on 06/30. - PT reeval 06/26 recommends YAMILETH. - Whole spine MRI with and w/o gadolinum ordered, pt refused today as pt is claustrophobic. Pt offered Valium, however pt does not want any medications. Pt states that she will reconsider getting MRI after some time. - Cont to closely monitor patient's symptoms and serologic workup. GI/DVT Ppx - Pepcid, heparin Patient seen, discussed, and reviewed with Dr Mcdonald. Rody Garibay, PGY1 <Jasen Mcdonald - Last Filed: 06/28/17 21:52> Objective - Vital Signs/Intake and Output Vital Signs (last 24 hours): Temp Pulse Resp BP Pulse Ox 98.2 F 97 H 18 141/89 98 06/28/17 16:49 06/28/17 16:49 06/28/17 16:49 06/28/17 16:49 06/28/17 16:49 Intake and Output: 06/28/17 06/29/17 18:59 06:59 Intake Total 960 Balance 960 - Medications Medications: Current Medications Acetaminophen/Butalbital/Caffeine (Fioricet) 1 tab PO Q4H PRN PRN Reason: Headache Docusate Sodium (Colace) 100 mg PO TID [facility] Last Admin: 06/28/17 17:07 Dose: 100 mg Famotidine (Pepcid) 20 mg PO 1000,2200 [facility] Last Admin: 06/28/17 11:03 Dose: Not Given Heparin Sodium (Porcine) (Heparin) 5,000 units SC Q8 ABHIJIT PRN Reason: Protocol Last Admin: 06/28/17 13:48 Dose: 5,000 units Immune Globulin 40 gm/ (Miscellaneous) 400 mls @ 1 mls/min IV DAILY ABHI[facility]IT Stop: 06/29/17 23:55 Last Admin: 06/28/17 14:13 Dose: 1 mls/min Ibuprofen (Motrin Tab) 600 mg PO Q6H PRN PRN Reason: Pain, Mild (1-3) Last Admin: 06/28/17 13:48 Dose: 600 mg - Labs Labs: 06/28/17 06:30 06/28/17 06:30 Attending/Attestation - Attestation I have personally seen and examined this patient.: Yes I have fully participated in the care of the patient.: Yes I have reviewed all pertinent clinical information, including history, physical exam and plan: Yes Notes (Text): 06/28/17 21:49 37 year old female with no significant past medical history who presented with body spasms and difficulty with ambulation. She was previously worked up at [facility] and then sent to [facility] from where she was referred due to persistent symptoms. CT head and MRI brain were negative for acute findings. CT spine showed L4-L5 spinal canal stenosis. PT and OT evaluation were appreciated. She is also being followed by neurology who recommended LP and MRI spine. She refused LP yesterday and today. She also refused MRI spine today due to claustrophobia. She is on day 2 of IVIG. ID evaluation was appreciated who ordered additional workup and requested hematology evaluation for macrocytic anemia. Jasen Mcdonald MD Hospitalist.
--- NOTE | 2017-06-28 21:20 | PN ---
DATE: 06/28/2017 SUBJECTIVE: The patient is in bed, in no acute distress, nontoxic. She is still refusing spinal tap. ASSESSMENT AND PLAN: This is a 37-year-old with morbid obesity female with body mass index of 42, who was admitted with ataxia, currently workup is in progress. The patient does have macrocytic anemia with an MCV of 105, does have an elevated sed rate and high phosphorus. C-reactive protein is normal. Negative HIV and negative RPR. Workup in progress. The patient is for MRI of the spine. Recommended Hematology evaluation for myelodysplastic syndrome plus flow cytometry has been requested. We will follow with you. Ricardo Evans MD
[2017-06-29 07:28] LABS: BASO # 0.04 K/mm3 (0.0-2.0); BASO % 0.8 % (0.0-3.0); EOS # 0.2 (0.0-0.7); EOS % 3.1 % (1.5-5.0); GRAN # 2.65 (1.4-6.5); GRAN % 50.4 % (50.0-68.0); HEMATOCRIT 35.7 % (36.0-48.0); LYMPH # 1.9 (1.2-3.4); LYMPH % 36.3 % (22.0-35.0); MEAN CELL VOLUME 102.6 fl (80.0-105.0); MEAN CORPUSCULAR HEMOGLOBIN 34.8 pg (25.0-35.0); MEAN CORPUSCULAR HGB CONC 33.9 g/dl (31.0-37.0); MEAN PLATELET VOLUME 10.6 fl (7.0-11.0); MONO # 0.5 (0.1-0.6); MONO % 9.4 % (1.0-6.0); RED CELL DISTRIBUTION WIDTH 13.8 % (11.5-14.5); WHITE BLOOD COUNT 5.2 10^3/ul (4.5-11.0)
[2017-06-29 07:50] LABS: ALB/GLOB RATIO 0.8 (1.1-1.8); ALKALINE PHOSPHATASE 76 U/L (38-126); ALT/SGPT 32 U/L (7-56); AST/SGOT 25 U/L (14-36); BILIRUBIN,TOTAL 0.4 mg/dL (0.2-1.3); BLOOD UREA NITROGEN 7 mg/dL (7-21); CALCIUM 9.3 mg/dL (8.4-10.5); CARBON DIOXIDE 21 mmol/L (21-33); CHLORIDE 106 mmol/L (98-107); GFR AFRICAN-AMERICAN > 60; GLUCOSE,RANDOM 91 mg/dL (70-110); POTASSIUM 3.9 mmol/L (3.6-5.0); SODIUM 140 mmol/L (132-148); TOTAL PROTEIN 8.5 g/dL (5.8-8.3)
[2017-06-29] MEDS: POLYETHYLENE GLYCOL 3350 17 GM/Dose PACKET PO SCH ×2 (10:03→17:30)
[2017-06-29] MEDS: IMMUNE GLOBULIN IV SCH (11:56)
[2017-06-29] MEDS: PREMIXED IV SCH (11:56)
--- NOTE | 2017-06-29 15:07 | CP.PCM.PN ---
<Rody Garibay - Last Filed: 06/29/17 15:01> Subjective - Date & Time of Evaluation Date of Evaluation: 06/29/17 Time of Evaluation: 15:01 - Subjective Subjective: Rody Garibay, PGY1, Medicine Progress Note for Dr. Agarwal: Patient seen and examined at bedside. No acute events overnight. Patient refused MRI spine yesterday as she said that she wanted to get IVIG one day and "will take one thing at a time." Agrees to MRI today. Complains of constipation for 1 week, and requests bowel regimen (pt already on colace tid). Her mother visited her last night. Objective - Vital Signs/Intake and Output Vital Signs (last 24 hours): Temp Pulse Resp BP Pulse Ox 98.2 F 89 20 134/81 97 06/29/17 08:00 06/29/17 08:00 06/29/17 08:00 06/29/17 08:00 06/29/17 08:00 Intake and Output: 06/29/17 06/29/17 06:59 18:59 Intake Total 240 Output Total 450 Balance -210 - Medications Medications: Current Medications Acetaminophen/Butalbital/Caffeine (Fioricet) 1 tab PO Q4H PRN PRN Reason: Headache Docusate Sodium (Colace) 100 mg PO TID [facility] Last Admin: 06/29/17 14:36 Dose: 100 mg Famotidine (Pepcid) 20 mg PO 1000,2200 [facility] Last Admin: 06/29/17 10:03 Dose: 20 mg Heparin Sodium (Porcine) (Heparin) 5,000 units SC Q8 [facility] PRN Reason: Protocol Last Admin: 06/29/17 14:36 Dose: 5,000 units Immune Globulin 40 gm/ (Miscellaneous) 400 mls @ 1 mls/min IV DAILY [facility] Stop: 06/29/17 23:55 Last Admin: 06/29/17 11:56 Dose: 1 mls/min Ibuprofen (Motrin Tab) 600 mg PO Q6H PRN PRN Reason: Pain, Mild (1-3) Last Admin: 06/28/17 13:48 Dose: 600 mg Polyethylene Glycol (Miralax) 17 gm PO BID [facility] Last Admin: 06/29/17 10:03 Dose: 17 gm - Labs Labs: 06/29/17 07:00 06/29/17 07:00 - Constitutional Appears: Non-toxic, No Acute Distress - Head Exam Head Exam: ATRAUMATIC, NORMOCEPHALIC - Eye Exam Eye Exam: EOMI, PERRL. absent: Conjunctival injection, Scleral icterus Pupil Exam: PERRL - ENT Exam ENT Exam: Mucous Membranes Moist - Respiratory Exam Respiratory Exam: Clear to Ausculation Bilateral. absent: Accessory Muscle Use , Chest Wall Tenderness, Respiratory Distress - Cardiovascular Exam Cardiovascular Exam: RRR, +S1, +S2. absent: Murmur - GI/Abdominal Exam GI & Abdominal Exam: Soft, Normal Bowel Sounds. absent: Distended, Guarding, Tenderness, Organomegaly, Rebound - Extremities Exam Extremities Exam: absent: Calf Tenderness, Pedal Edema - Back Exam Back Exam: NORMAL INSPECTION - Neurological Exam Neurological Exam: Alert, Awake, CN II-XII Intact, Oriented x3 Neuro motor strength exam: Left Upper Extremity: 5, Right Upper Extremity: 5, Left Lower Extremity: 5, Right Lower Extremity: 5 Additional comments: Sensation intact, propioception grossly intact b/l - Psychiatric Exam Psychiatric exam: Normal Affect, Normal Mood - Skin Skin Exam: Dry, Normal Color, Warm Assessment and Plan - Assessment and Plan (Free Text) Assessment: 37 yo F with no significant PMH who presents for back/body spasms, incoordination, ataxia (started on 06/12/17): Back/body spasms, Ataxia, Incoordination: 2/2 trauma related vs MS vs polymyositis vs Lyme disease vs Vit B12,D, folate deficiency vs hypothyroidism vs acute CVA vs other demyelinating condition (ALS ) vs MDS vs spine related neuropathy vs psychogenic - Patient has inability to walk and has marked L finger to nose dysmetria; started 9 days ago - Motor strength and sensation intact b/l. - CXR unremarkable. CT head neg. MRI brain neg for any lesions. - lumbar spine shows spinal canal stenosis L4-L5, no herniations. - As per PT, pt was able to stand up, however, has leg coordination issues. recommend YAMILETH. - Vitamin B12, folate and TSH all within normal limits. - Received prior records from [facility], MRI head was normal and Lumbar MRI showed congential narrowing of lumbar spinal canal. No other serologic workup done. - Rpr NR, HIV ab neg. - ID consulted. appreciate recs. F/u lupus, antiphospholipid ab, Lyme disease, treponema serology, MMA, NICOLA. - Heme consulted for macrocytic anemia. Pt not an alcoholic or found to be B12/ folate deficient. Consider MDS, f/u recs. - High risk fall precautions - Neurology consult requested, patient is well known to dr Rose from previous admission at [facility]. Pt refused spinal tap. will reconsider. Appreciate recs. - C/w IVIG Day 09/05. Cont to monitor any improvement of symptoms. - PT reeval 06/26 recommends [facility]. - Whole spine MRI with and w/o gadolinum ordered, pt refused today as pt is claustrophobic. Pt offered Valium, however pt does not want any medications. Pt states that she will reconsider getting MRI today. - Cont to closely monitor patient's symptoms and serologic workup. - Consider Psych eval if all serologies and workup negative. Constipation: - Last BM 1 week ago. - On Colace tid since admission - Benign abdominal exam, tolerating PO diet well - Added Miralax to bowel regimen - Cont to monitor. Dispo: Pt came from [facility]. Amenable to go back there for PT. GI/DVT Ppx - Pepcid, heparin Patient seen, discussed, and reviewed with Dr Mcdonald. Rody Garibay, PGY1 <Russ Agarwal - Last Filed: 06/29/17 15:32> Objective - Vital Signs/Intake and Output Vital Signs (last 24 hours): Temp Pulse Resp BP Pulse Ox 98.2 F 89 20 134/81 97 06/29/17 08:00 06/29/17 08:00 06/29/17 08:00 06/29/17 08:00 06/29/17 08:00 Intake and Output: 06/29/17 06/29/17 06:59 18:59 Intake Total 240 Output Total 450 Balance -210 - Medications Medications: Current Medications Acetaminophen/Butalbital/Caffeine (Fioricet) 1 tab PO Q4H PRN PRN Reason: Headache Docusate Sodium (Colace) 100 mg PO TID [facility] Last Admin: 06/29/17 14:36 Dose: 100 mg Famotidine (Pepcid) 20 mg PO 1000,2200 [facility] Last Admin: 06/29/17 10:03 Dose: 20 mg Heparin Sodium (Porcine) (Heparin) 5,000 units SC Q8 [facility] PRN Reason: Protocol Last Admin: 06/29/17 14:36 Dose: 5,000 units Immune Globulin 40 gm/ (Miscellaneous) 400 mls @ 1 mls/min IV DAILY [facility] Stop: 06/29/17 23:55 Last Admin: 06/29/17 11:56 Dose: 1 mls/min Ibuprofen (Motrin Tab) 600 mg PO Q6H PRN PRN Reason: Pain, Mild (1-3) Last Admin: 06/28/17 13:48 Dose: 600 mg Polyethylene Glycol (Miralax) 17 gm PO BID [facility] Last Admin: 06/29/17 10:03 Dose: 17 gm - Labs Labs: 06/29/17 07:00 06/29/17 07:00 Attending/Attestation - Attestation I have personally seen and examined this patient.: Yes I have fully participated in the care of the patient.: Yes I have reviewed all pertinent clinical information, including history, physical exam and plan: Yes Notes (Text): 06/29/17 15:27 Patient was seen and examined with medical review coordinator. Agreed with resident assessment and plan. 37 yrs old Female was admitted with ataxia.She was previously worked up at [facility] and then was discharged to [facility] from where she was referred due to persistent symptoms.CT head and MRI brain were negative for acute findings. CT spine showed L4-L5 spinal canal stenosis. Patient has normal power in both upper and lower extremities.There is no sensory lose.Patient Neurology has recommended LP and MRI spine.Patient has refused LP getting IVIG as per Neurology.We will follow up MRI. Continue Physical therapy. Management plan was discussed in detail with patient Education was provided.
--- NOTE | 2017-06-29 23:50 | PN ---
DATE: 06/29/2017 SUBJECTIVE: The patient is in bed this morning, was seen early this morning in room 569. PHYSICAL EXAMINATION: VITAL SIGNS: Temperature is 98, blood pressure is 118/60, respiratory rate of 20, heart rate of 98. HEENT: Unremarkable. NECK: Supple. LUNGS: Decreased breath sounds. HEART: Normal S1 and S2. ABDOMEN: Soft and nontender. LABORATORY EXAMINATION: Reveals white count of 5.2, hemoglobin of 12, platelets of 386. Chemistries are noted. Serology is noted. Blood cultures have no growth. Currently, the patient is off of antibiotics. ASSESSMENT AND PLAN: A 37-year-old female with morbid obesity, BMI of 42, is admitted with ataxia and macrocytic anemia with an MCV of 105 with normal B12 level. We are awaiting for folic acid deficiency and also Oncology evaluation for myelodysplastic syndrome. MRI of spine is also pending. Currently, off of antibiotics. Ricardo Evans MD
[2017-06-30 07:16] LABS: BASO # 0.04 K/mm3 (0.0-2.0); BASO % 0.8 % (0.0-3.0); EOS # 0.2 (0.0-0.7); EOS % 3.2 % (1.5-5.0); GRAN # 2.33 (1.4-6.5); HEMATOCRIT 35.5 % (36.0-48.0); LYMPH # 1.7 (1.2-3.4); LYMPH % 34.1 % (22.0-35.0); MEAN CELL VOLUME 103.2 fl (80.0-105.0); MEAN CORPUSCULAR HEMOGLOBIN 34.3 pg (25.0-35.0); MEAN CORPUSCULAR HGB CONC 33.2 g/dl (31.0-37.0); MEAN PLATELET VOLUME 10.5 fl (7.0-11.0); MONO # 0.7 (0.1-0.6); MONO % 14.9 % (1.0-6.0); RED CELL DISTRIBUTION WIDTH 13.7 % (11.5-14.5)
[2017-06-30 07:43] LABS: ALB/GLOB RATIO 0.8 (1.1-1.8); ALKALINE PHOSPHATASE 73 U/L (38-126); ALT/SGPT 40 U/L (7-56); AST/SGOT 31 U/L (14-36); BILIRUBIN,TOTAL 0.4 mg/dL (0.2-1.3); BLOOD UREA NITROGEN 8 mg/dL (7-21); CALCIUM 9.4 mg/dL (8.4-10.5); CARBON DIOXIDE 26 mmol/L (21-33); CHLORIDE 104 mmol/L (98-107); GFR AFRICAN-AMERICAN > 60; GLUCOSE,RANDOM 84 mg/dL (70-110); POTASSIUM 4.3 mmol/L (3.6-5.0); SODIUM 138 mmol/L (132-148); TOTAL PROTEIN 8.5 g/dL (5.8-8.3)
[2017-06-30] MEDS: POLYETHYLENE GLYCOL 3350 17 GM/Dose PACKET PO SCH (10:03)
--- NOTE | 2017-06-30 13:22 | CP.PCM.PN ---
<Rody Garibay - Last Filed: 06/30/17 16:17> Subjective - Date & Time of Evaluation Date of Evaluation: 06/30/17 Time of Evaluation: 13:12 - Subjective Subjective: Rody Garibay, PGY1, Medicine Progress Note for Dr Agarwal: Patient seen and examined at bedside. Patient refused Pepcid and subq heparin last night. This AM, patient states that she feels sore, denies current muscle spasms, weakness. Patient states that she gets muscle spasms thru the day though. Agreed to Flexeril use now (had previously refused thru the hospital course). Still has ataxia. Denies any improvement of symptoms s/p 3 days of IVIG. After explaining to the patient about the importance of spine MRI, patient agreed to have it today. Objective - Vital Signs/Intake and Output Vital Signs (last 24 hours): Temp Pulse Resp BP Pulse Ox 98.2 F 90 20 132/70 97 06/30/17 07:30 06/30/17 07:30 06/30/17 07:30 06/30/17 07:30 06/30/17 07:30 Intake and Output: 06/30/17 06/30/17 06:59 18:59 Intake Total 900 Balance 900 - Medications Medications: Current Medications Acetaminophen/Butalbital/Caffeine (Fioricet) 1 tab PO Q4H PRN PRN Reason: Headache Cyclobenzaprine HCl (Flexeril) 5 mg PO TID PRN PRN Reason: Muscle spasm Docusate Sodium (Colace) 100 mg PO TID [facility] Last Admin: 06/30/17 10:03 Dose: 100 mg Famotidine (Pepcid) 20 mg PO 1000,2200 [facility] Last Admin: 06/30/17 10:04 Dose: Not Given Heparin Sodium (Porcine) (Heparin) 5,000 units SC Q8 [facility] PRN Reason: Protocol Last Admin: 06/30/17 06:37 Dose: 5,000 units Ibuprofen (Motrin Tab) 600 mg PO Q6H PRN PRN Reason: Pain, Mild (1-3) Last Admin: 06/29/17 21:07 Dose: 600 mg Polyethylene Glycol (Miralax) 17 gm PO BID [facility] Last Admin: 06/30/17 10:03 Dose: 17 gm - Labs Labs: 06/30/17 07:00 06/30/17 07:00 - Additional Findings Additional findings: - Constitutional Appears: Non-toxic, No Acute Distress - Head Exam Head Exam: ATRAUMATIC, NORMOCEPHALIC - Eye Exam Eye Exam: EOMI, PERRL. absent: Conjunctival injection, Scleral icterus Pupil Exam: PERRL - ENT Exam ENT Exam: Mucous Membranes Moist - Respiratory Exam Respiratory Exam: Clear to Ausculation Bilateral. absent: Accessory Muscle Use , Chest Wall Tenderness, Respiratory Distress - Cardiovascular Exam Cardiovascular Exam: RRR, +S1, +S2. absent: Murmur - GI/Abdominal Exam GI & Abdominal Exam: Soft, Normal Bowel Sounds. absent: Distended, Guarding, Tenderness, Organomegaly, Rebound - Extremities Exam Extremities Exam: absent: Calf Tenderness, Pedal Edema - Back Exam Back Exam: NORMAL INSPECTION - Neurological Exam Neurological Exam: Alert, Awake, CN II-XII Intact, Oriented x3 Neuro motor strength exam: Left Upper Extremity: 5, Right Upper Extremity: 5, Left Lower Extremity: 5, Right Lower Extremity: 5 Additional comments: + difficulty grasping cup (abnormal), incoordination movements of her fingers Sensation intact, propioception grossly intact b/l - Psychiatric Exam Psychiatric exam: Normal Affect, Normal Mood - Skin Skin Exam: Dry, Normal Color, Warm Assessment and Plan - Assessment and Plan (Free Text) Assessment: 37 yo F with no significant PMH who presents for back/body spasms, incoordination, ataxia (started on 06/12/17): Back/body spasms, Ataxia, Incoordination: 2/2 trauma related vs MS vs polymyositis vs Lyme disease vs Vit B12,D, folate deficiency vs hypothyroidism vs acute CVA vs other demyelinating condition (ALS ) vs MDS vs spine related neuropathy vs psychogenic - Her symptoms of acute ataxia and grasping difficulties/incoordination started acutely on 06/12/17 days ago Patient has inability to walk and has marked L finger to nose dysmetria - Motor strength and sensation intact b/l. - CXR unremarkable. CT head neg. MRI brain neg for any lesions. - lumbar spine shows spinal canal stenosis L4-L5, no herniations. - As per PT, pt was able to stand up, however, has leg coordination issues. recommend YAMILETH. - Vitamin B12, folate and TSH all within normal limits. - Received prior records from [facility], MRI head was normal and Lumbar MRI showed congential narrowing of lumbar spinal canal. No other serologic workup done. - Rpr NR, HIV ab neg. ESR 40, CRP nrml. - ID consulted. appreciate recs. F/u lupus, antiphospholipid ab, Lyme disease, treponema serology, MMA, NICOLA. - Heme consulted for macrocytic anemia. Pt not an alcoholic or found to be B12/ folate deficient. Consider MDS, f/u recs. - High risk fall precautions - Neurology consult requested, patient is well known to dr Rose from previous admission at [facility]. Pt refused spinal tap. will reconsider. Appreciate recs. - S/p IVIG Day 09/05. Cont to monitor any improvement of symptoms. - PT reeval 06/26 recommends YAMILETH. - Whole spine MRI with and w/o gadolinum ordered, pt refused x2 the prior days as pt is claustrophobic. Pt offered Valium, however pt does not want any medications. Pt states that she will reconsider getting MRI today. - Spoke with pt's mother (over the phone) regarding patient's condition. She states that pt lives with her grandmother (who needs help from patient). Pt went to [employer] school and received her Bachelors in Communications and Psychology from [employer]. 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 She says that she might be depressed. Does not know much about patient's social life/friends or partner/boyfriend. States that she is not aware of any current social issues going on in patient's life (as she herself is busy with taking care of her father at [facility]). States that pt fractured one of her wrist while she was 12, and it has been weak. But she has not noted the grasping difficulties/incoordinating movements with her fingers and ataxia that have recently developed. Prior to 06/12, pt complained of some back pain/muscle spasms but no other issues. On 06/12 she acute could not walk while she was at her grandmother's house (mother was not present at the time). Then ambulance had to be called to take her to [facility]. Mother will try to obtain more information about patient's social life and communicate to the team. - Cont to closely monitor patient's symptoms and serologic workup. - If pt refuses MRI, will send her back to rehab. Discussed with patient. Constipation, resolved: - Pt had a BM yesterday. - Cont with Colace tid. Change Miralax once a day - Cont to monitor. Dispo: Pt came from [facility]. Amenable to go back there for PT. GI/DVT Ppx - Pepcid, heparin Patient seen, discussed, and reviewed with Dr Agarwal. Rody Garibay, PGY1 <Russ Agarwal - Last Filed: 07/01/17 17:41> Objective - Vital Signs/Intake and Output Vital Signs (last 24 hours): Temp Pulse Resp BP Pulse Ox 98.2 F 86 20 114/73 95 07/01/17 08:38 07/01/17 08:38 07/01/17 08:38 07/01/17 08:38 07/01/17 08:38 Intake and Output: 07/01/17 07/01/17 06:59 18:59 Intake Total 720 240 Balance 720 240 - Medications Medications: Current Medications Acetaminophen/Butalbital/Caffeine (Fioricet) 1 tab PO Q4H PRN PRN Reason: Headache Cyclobenzaprine HCl (Flexeril) 5 mg PO TID PRN PRN Reason: Muscle spasm Docusate Sodium (Colace) 100 mg PO TID [facility] Last Admin: 07/01/17 15:28 Dose: 100 mg Famotidine (Pepcid) 20 mg PO 1000,2200 [facility] Last Admin: 07/01/17 09:14 Dose: Not Given Heparin Sodium (Porcine) (Heparin) 5,000 units SC Q8 [facility] PRN Reason: Protocol Last Admin: 07/01/17 15:29 Dose: 5,000 units Ibuprofen (Motrin Tab) 600 mg PO Q6H PRN PRN Reason: Pain, Mild (1-3) Last Admin: 07/01/17 09:10 Dose: 600 mg Polyethylene Glycol (Miralax) 17 gm PO DAILY [facility] - Labs Labs: 06/30/17 07:00 06/30/17 07:00 Attending/Attestation - Attestation I have personally seen and examined this patient.: Yes I have fully participated in the care of the patient.: Yes I have reviewed all pertinent clinical information, including history, physical exam and plan: Yes Notes (Text): 07/01/17 17:40 Patient was seen and examined with clinical medical transcriptionist. Agreed with resident assessment and plan. 37 yrs old Female was admitted with ataxia.She was previously worked up at [facility] and then was discharged to [facility] from where she was referred due to persistent symptoms.CT head and MRI brain were negative for acute findings. CT spine showed L4-L5 spinal canal stenosis. Patient has normal power in both upper and lower extremities.There is no sensory lose.Patient Neurology has recommended LP and MRI spine.Patient has refused LP.Patient was given IVIG for possible MS.The Neuro examination is unchanged.MRI of spine are pending.We will follow up results. Management plan was discussed in detail with patient Education was provided.
[2017-06-30 19:14] LABS: Interpretation Negative (Negative)
--- NOTE | 2017-06-30 19:20 | PN ---
DATE: 06/30/2017 SUBJECTIVE: Patient is in bed in no acute distress, was seen early this morning. PHYSICAL EXAMINATION VITAL SIGNS: Temperature 98, blood pressure 130/70, respiratory rate 16. HEENT: Unremarkable. NECK: Supple. LUNGS: Decreased breath sounds. HEART: Normal S1, S2. ABDOMEN: Soft. LABORATORY DATA: Reveals a white count is 5, hemoglobin is 11, platelets of 332. Chemistries are noted. Urinalysis is noted. HIV is negative. RPR is negative. Flow cytometry is pending. Review of orders revealed the patient to be off of antibiotics. MRI of the spine is still pending. Spinal tap is still pending. Dr. Garibay's note is reviewed. ASSESSMENT AND PLAN: This is a 37-year-old female with morbid obesity, with BMI of 42, with macrocytic anemia with an MCV of 105 and awaiting for B12 level as reported to be normal and methylmalonic acid level is pending and vasculitis workup pending. Hematology evaluation for increased MCV of 105, myelodysplastic disorder must be in progress. We will follow with you. Ricardo Evans MD
[2017-07-01 05:11] LABS: B2 GLYCOPROTEIN I AB(IGA) <9 SAU (<=20); B2 GLYCOPROTEIN I AB(IGG) <9 SGU (<=20); B2 GLYCOPROTEIN I AB(IGM) <9 SMU (<=20)
[2017-07-01 05:46] LABS: PHOSPHATIDYLSERINE AB IGA <20 U/mL (<20); PHOSPHATIDYLSERINE AB IGM <25 U/mL (<25)
--- NOTE | 2017-07-01 08:40 | MRI ---
EXAM: MR Lumbar Spine Without Intravenous Contrast CLINICAL HISTORY: 37 years old, female; Signs and symptoms; Weakness; Additional info: Acute inability to walk, body spasms TECHNIQUE: Magnetic resonance images of the lumbar spine without intravenous contrast in multiple planes. COMPARISON: CT - LUMBAR SPINE W/O CONTRAST 2017-06-24 22:57 FINDINGS: Vertebrae: The lumbar vertebral bodies are normal in height and alignment.No acute fracture or dislocation is seen. Marrow: There is a normal proportion of hematopoietic bone marrow and fat for this patient's age.There is no evidence of abnormal bone marrow signal intensity to suggest contusion or infection. Epidural space: There is no evidence of epidural masses or hemorrhage. Spinal cord: The conus medullaris is normal. Soft tissues: The prevertebral soft tissues appear normal. DISCS/SPINAL CANAL/NEURAL FORAMINA: L1-L2: No disc herniation, disc bulge, nor spinal canal or neural foraminal stenosis is present. There is no nerve root impingement. L2-L3: No disc herniation, disc bulge, nor spinal canal or neural foraminal stenosis is present. There is no nerve root impingement. L3-L4: No disc herniation, disc bulge, nor spinal canal or neural foraminal stenosis is present. There is no nerve root impingement. L4-L5: The L4-L5 level demonstrates a mild diffuse posterior disc bulge. The facet joints demonstrate mild degenerative hypertrophy and sclerosis. There is mild spinal canal narrowing, with an AP canal dimension of 10 mm. There is mild bilateral foraminal stenosis. L5-S1: The L5-S1 level demonstrates a mild diffuse posterior disc bulge. The facet joints demonstrate moderate degenerative narrowing and sclerosis. There is mild spinal canal narrowing, with an AP canal dimension of 10 mm. There is mild bilateral foraminal stenosis. Other findings: The cauda equina nerve roots demonstrate no crowding or displacement. IMPRESSION: MRI of the lumbar spine reveals stable mild multilevel degenerative spondylitic changes and degenerative disc disease at L4-5 and L5-S1 levels as described above.No acute fracture or dislocation is seen.
--- NOTE | 2017-07-01 08:48 | MRI ---
EXAM: MR Cervical Spine Without Intravenous Contrast CLINICAL HISTORY: 37 years old, female; Signs and symptoms; Weakness; Additional info: Acute inability to walk, body spasms TECHNIQUE: Magnetic resonance images of the cervical spine without intravenous contrast in multiple planes. COMPARISON: No relevant prior studies available. FINDINGS: Vertebrae: The cervical vertebral bodies are normal height and alignment.No acute fracture or dislocation is seen. The atlantoaxial articulation is normal. Marrow: There is a normal proportion of hematopoietic bone marrow and fat for this patient's age.There is no evidence of abnormal bone marrow signal intensity to suggest contusion or infection. Epidural space: There is no evidence of epidural masses or hemorrhage. Spinal cord: The spinal cord is normal in thickness and signal intensity.There is no intramedullary signal abnormality. Soft tissues: There is straightening of the cervical spine which could be secondary to positioning or muscle spasm. The prevertebral soft tissues appear normal. DISCS/SPINAL CANAL/NEURAL FORAMINA: C2-C3: Unremarkable. No significant disc disease. No stenosis. C3-C4: The C3-C4 level demonstrates a small diffuse posterior disc herniation. The facet joints demonstrate mild degenerative hypertrophy and sclerosis. There is mild spinal canal narrowing, with an AP canal dimension of 10 mm. There is mild bilateral foraminal stenosis. C4-C5: The C4-C5 level demonstrates a small diffuse posterior disc herniation. The facet joints demonstrate mild degenerative hypertrophy and sclerosis. There is mild spinal canal narrowing, with an AP canal dimension of 10 mm. There is mild bilateral foraminal stenosis. C5-C6: The C5-C6 level demonstrates a small posterior central disc herniation.The facet joints demonstrate mild degenerative hypertrophy and sclerosis. There is bilateral uncovertebral hypertrophic changes.There is moderate spinal canal stenosis, with an AP canal dimension of 8 mm. There is mild indentation and compression of the spinal cord at this level.There is mild bilateral foraminal stenosis. C6-C7: The C6-C7 level demonstrates a mild diffuse posterior bulge. The facet joints demonstrate mild degenerative hypertrophy and sclerosis. There is no evidence of spinal canal narrowing. There is mild bilateral foraminal stenosis. C7-T1: Unremarkable. No significant disc disease. No stenosis. Other findings: The visualized brain parenchyma is unremarkable. IMPRESSION: MRI of the cervical spine reveals mild multilevel degenerative spondylitic changes and degenerative disc disease , most significant at C5-6 level as described above. No acute fracture or dislocation is seen.
[2017-07-01] MEDS ORDERED: POLYETHYLENE GLYCOL 3350 17 GM/Dose PACKET PO SCH (10:00)
--- NOTE | 2017-07-01 10:34 | MRI ---
PROCEDURE: MR THORACIC SPINE WITHOUT CONTRAST HISTORY: acute inability to walk, body spasms COMPARISON: None available. TECHNIQUE: Multiecho multiplanar sequences were performed through the thoracic spine without the use of intravenous contrast. THE STUDY WAS EXTREMELY LIMITED. THERE WAS METALLIC ARTIFACT OVER THE SPINE. THE PATIENT WAS COMBATIVE. FINDINGS: ALIGNMENT: Metallic artifact distorts the spine VERTEBRA: There is a compression deformity of the left side of T10. This does not appear to be acute. There is no marrow edema MARROW: Marrow signal unremarkable. PARASPINAL SOFT TISSUES: Unremarkable. CORD: Unremarkable thoracic cord. No volume loss, signal abnormality or syrinx. DISCS: No disc herniation, spinal canal stenosis, or neuroforaminal narrowing. OTHER FINDINGS: None. IMPRESSION: Limited study. No evidence of cord compression.
[2017-07-01] MEDS ORDERED: Gadodiamide 287 MG/ML VIAL (20ML) IV ONE (10:36)
--- NOTE | 2017-07-01 12:00 | CP.PCM.PN ---
<Rody Garibay - Last Filed: 07/01/17 11:51> Subjective - Date & Time of Evaluation Date of Evaluation: 07/01/17 Time of Evaluation: 11:52 - Subjective Subjective: Rody Garibay, PGY1, Medicine Progress Note for Dr. Agarwal: Patient seen and examined at bedside. No acute events overnight. Pt to undergo contrast lumbar MRI today. States that she would like to split up the time as she is claustrophobic (refused Valium). No acute events overnight. Pt c/o muscle spasms intermittently, and still has ataxia. No changes. Objective - Vital Signs/Intake and Output Vital Signs (last 24 hours): Temp Pulse Resp BP Pulse Ox 98.2 F 86 20 114/73 95 07/01/17 08:38 07/01/17 08:38 07/01/17 08:38 07/01/17 08:38 07/01/17 08:38 Intake and Output: 07/01/17 07/01/17 06:59 18:59 Intake Total 720 Balance 720 - Medications Medications: Current Medications Acetaminophen/Butalbital/Caffeine (Fioricet) 1 tab PO Q4H PRN PRN Reason: Headache Cyclobenzaprine HCl (Flexeril) 5 mg PO TID PRN PRN Reason: Muscle spasm Docusate Sodium (Colace) 100 mg PO TID [facility] Last Admin: 07/01/17 09:10 Dose: 100 mg Famotidine (Pepcid) 20 mg PO 1000,2200 [facility] Last Admin: 07/01/17 09:14 Dose: Not Given Heparin Sodium (Porcine) (Heparin) 5,000 units SC Q8 [facility] PRN Reason: Protocol Last Admin: 07/01/17 05:33 Dose: 5,000 units Ibuprofen (Motrin Tab) 600 mg PO Q6H PRN PRN Reason: Pain, Mild (1-3) Last Admin: 07/01/17 09:10 Dose: 600 mg Polyethylene Glycol (Miralax) 17 gm PO DAILY [facility] - Labs Labs: 06/30/17 07:00 06/30/17 07:00 - Additional Findings Additional findings: - Constitutional Appears: Non-toxic, No Acute Distress - Head Exam Head Exam: ATRAUMATIC, NORMOCEPHALIC - Eye Exam Eye Exam: EOMI, PERRL. absent: Conjunctival injection, Scleral icterus Pupil Exam: PERRL - ENT Exam ENT Exam: Mucous Membranes Moist - Respiratory Exam Respiratory Exam: Clear to Ausculation Bilateral. absent: Accessory Muscle Use , Chest Wall Tenderness, Respiratory Distress - Cardiovascular Exam Cardiovascular Exam: RRR, +S1, +S2. absent: Murmur - GI/Abdominal Exam GI & Abdominal Exam: Soft, Normal Bowel Sounds. absent: Distended, Guarding, Tenderness, Organomegaly, Rebound - Extremities Exam Extremities Exam: absent: Calf Tenderness, Pedal Edema - Back Exam Back Exam: NORMAL INSPECTION - Neurological Exam Neurological Exam: Alert, Awake, CN II-XII Intact, Oriented x3 Neuro motor strength exam: Left Upper Extremity: 5, Right Upper Extremity: 5, Left Lower Extremity: 5, Right Lower Extremity: 5 Additional comments: difficult grasping and incoordinating movements of her fingers (unchanged from previous exams). Sensation intact, propioception grossly intact b/l - Psychiatric Exam Psychiatric exam: Normal Affect, Normal Mood - Skin Skin Exam: Dry, Normal Color, Warm Assessment and Plan - Assessment and Plan (Free Text) Assessment: 37 yo F with no significant PMH who presents for back/body spasms, incoordination, ataxia (started on 06/12/17): Back/body spasms, Ataxia, Incoordination: 2/2 trauma related vs MS vs polymyositis vs Lyme disease vs Vit B12,D, folate deficiency vs hypothyroidism vs acute CVA vs other demyelinating condition (ALS ) vs MDS vs spine related neuropathy vs psychogenic - Her symptoms of acute ataxia and grasping difficulties/incoordination started acutely on 06/12/17 days ago Patient has inability to walk and has marked L finger to nose dysmetria - Motor strength and sensation intact b/l. - CXR unremarkable. CT head neg. MRI brain neg for any lesions. - lumbar spine shows spinal canal stenosis L4-L5, no herniations. - As per PT, pt was able to stand up, however, has leg coordination issues. recommend YAMILETH. - Vitamin B12, folate and TSH all within normal limits. - Received prior [place] [facility] head was normal and Lumbar MRI showed congential narrowing of lumbar spinal canal. No other serologic workup done. - Rpr NR, HIV ab neg. ESR 40, CRP nrml. - ID consulted. appreciate recs. F/u lupus, antiphospholipid ab, Lyme disease, treponema serology, MMA, NICOLA. - Heme consulted for macrocytic anemia. Pt not an alcoholic or found to be B12/ folate deficient. Consider MDS, f/u recs. - High risk fall precautions - Neurology consult requested, patient is well known to dr Rose from previous admission at [facility]. Pt refused spinal tap. will reconsider. Appreciate recs. - S/p IVIG Day 3/3. No improvement of symptoms - PT reeval 06/26, 06/30 recommends YAMILETH. - Spoke with pt's mother (over the phone) regarding patient's condition. She states that pt lives with her grandmother (who needs help from patient). Pt went to [email or web address] and received her Bachelors in Communications and Psychology from [employer]. 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 She says that she might be depressed. Does not know much about patient's social life/friends or partner/boyfriend. States that she is not aware of any current social issues going on in patient's life (as she herself is busy with taking care of her father at [facility]). States that pt fractured one of her wrist while she was 12, and it has been weak. But she has not noted the grasping difficulties/incoordinating movements with her fingers and ataxia that have recently developed. Prior to 06/12, pt complained of some back pain/muscle spasms but no other issues. On 06/12 she acute could not walk while she was at her grandmother's house (mother was not present at the time). Then ambulance had to be called to take her to [facility]. Mother will try to obtain more information about patient's social life and communicate to the team. - s/p 3 days of IVIG Day. No improvement of symptoms. - PT reeval 06/26, 06/30 recommends YAMILETH. - Cervical spine MRI showed disc herniations C3-C4, C4-C5, C5-C6, C6-C7. Multilevel degenerative spondylitic changes and degenerative joint disease. - Thoracic MRI showed mild compression deformity of left side of T10. chronic - Awaiting spine MRI with contrast to see any demyelinating lesions. - NICOLA neg. Anti-Sm ab neg, Phosphatidylserine Immunoglobulins neg. - Cont to monitor. If MRI does not show any demyelinating lesions, will send her back to [facility] ([facility]). Constipation, resolved: - Cont with Colace tid and Miralax once a day - Cont to monitor. Dispo: Pt came from [facility]. Amenable to go back there for PT. GI/DVT Ppx - Pepcid, heparin Patient seen, discussed, and reviewed with Dr Agarwal. Rody Garibay, PGY1 <Russ Agarwal - Last Filed: 07/01/17 17:45> Objective - Vital Signs/Intake and Output Vital Signs (last 24 hours): Temp Pulse Resp BP Pulse Ox 98.2 F 86 20 114/73 95 07/01/17 08:38 07/01/17 08:38 07/01/17 08:38 07/01/17 08:38 07/01/17 08:38 Intake and Output: 07/01/17 07/01/17 06:59 18:59 Intake Total 720 240 Balance 720 240 - Medications Medications: Current Medications Acetaminophen/Butalbital/Caffeine (Fioricet) 1 tab PO Q4H PRN PRN Reason: Headache Cyclobenzaprine HCl (Flexeril) 5 mg PO TID PRN PRN Reason: Muscle spasm Docusate Sodium (Colace) 100 mg PO TID [facility] Last Admin: 07/01/17 15:28 Dose: 100 mg Famotidine (Pepcid) 20 mg PO 1000,2200 [facility] Last Admin: 07/01/17 09:14 Dose: Not Given Heparin Sodium (Porcine) (Heparin) 5,000 units SC Q8 [facility] PRN Reason: Protocol Last Admin: 07/01/17 15:29 Dose: 5,000 units Ibuprofen (Motrin Tab) 600 mg PO Q6H PRN PRN Reason: Pain, Mild (1-3) Last Admin: 07/01/17 09:10 Dose: 600 mg Polyethylene Glycol (Miralax) 17 gm PO DAILY [facility] - Labs Labs: 06/30/17 07:00 06/30/17 07:00 Attending/Attestation - Attestation I have personally seen and examined this patient.: Yes I have fully participated in the care of the patient.: Yes I have reviewed all pertinent clinical information, including history, physical exam and plan: Yes Notes (Text): 07/01/17 17:44 Patient was seen and examined with medical technologist chief. Agreed with resident assessment and plan. 37 yrs old Female was admitted with ataxia.She was previously worked up at [facility] and then was discharged to [facility] from where she was referred due to persistent symptoms.CT head and MRI brain were negative for acute findings. CT spine showed L4-L5 spinal canal stenosis. Patient has normal power in both upper and lower extremities.There is no sensory lose.MRI of spines is negative for any demylination lesion or any other acute abnormalities.Patient case was discussed with Neurology.She will be discharged back to [facility] for physical therapy and rehabilitation. Management plan was discussed in detail with patient Education was provided.
--- NOTE | 2017-07-01 12:27 | MRI ---
PROCEDURE: MR LUMBAR SPINE WITH CONTRAST HISTORY: stenosis COMPARISON: Comparison was made to the nonenhanced study from the previous day. TECHNIQUE: Multiecho multiplanar sequences were performed through the lumbar spine with and without the use of intravenous contrast. FINDINGS: Normal lumbar lordosis. Vertebral body heights are preserved. Marrow signal unremarkable. Conus medullaris unremarkable at the level of Paraspinal soft tissues are unremarkable. No abnormal enhancement. T12-L1: No disc herniation, spinal canal stenosis or neural foraminal narrowing. L1-2: No disc herniation, spinal canal stenosis or neural foraminal narrowing. L2-3: No disc herniation, spinal canal stenosis or neural foraminal narrowing. L3-4: Moderate facet arthropathy L4-5: Moderate facet arthropathy with mild central stenosis L5-S1: No disc herniation, spinal canal stenosis or neural foraminal narrowing. Mild facet arthropathy OTHER FINDINGS: None. IMPRESSION: Facet arthropathy in the lower lumbar spine. Mild stenosis at L4-5. No enhancing abnormalities
[2017-07-01 13:55] LABS: RETIC% 1.36 % (0.5-1.5)
--- NOTE | 2017-07-01 15:36 | CP.PCM.DIS ---
<Rody Garibay - Last Filed: 07/01/17 16:26> Provider - Provider Date of Admission: 06/26/17 14:02 Attending physician: Russ Agarwal MD Primary care physician: Carlos Ogden MD Consults: Neuro Rose Evans Time Spent in preparation of Discharge (in minutes): 35 Diagnosis - Discharge Diagnosis (1) Cervical disc herniation Status: Acute (2) Low back pain Status: Acute (3) Spinal stenosis Status: Acute Hospital Course - Lab Results Lab Results: Micro Results 06/27/17 22:45 Blood Blood Culture - Preliminary NO GROWTH AFTER 3 DAYS 06/27/17 22:30 Blood Blood Culture - Preliminary NO GROWTH AFTER 3 DAYS Most Recent Lab Values WBC 5.0 10^3/ul (4.5-11.0) 06/30/17 07:00 RBC 3.44 10^6/uL (3.5-6.1) L 06/30/17 07:00 Hgb 11.8 g/dL (12.0-16.0) L 06/30/17 07:00 Hct 35.5 % (36.0-48.0) L 06/30/17 07:00 MCV 103.2 fl (80.0-105.0) 06/30/17 07:00 MCH 34.3 pg (25.0-35.0) 06/30/17 07:00 MCHC 33.2 g/dl (31.0-37.0) 06/30/17 07:00 RDW 13.7 % (11.5-14.5) 06/30/17 07:00 Plt Count 332 10^3/uL (120.0-450.0) 06/30/17 07:00 MPV 10.5 fl (7.0-11.0) 06/30/17 07:00 Gran % 47.0 % (50.0-68.0) L 06/30/17 07:00 Lymph % (Auto) 34.1 % (22.0-35.0) 06/30/17 07:00 Yuba % (Auto) 14.9 % (1.0-6.0) H 06/30/17 07:00 Eos % (Auto) 3.2 % (1.5-5.0) 06/30/17 07:00 Baso % (Auto) 0.8 % (0.0-3.0) 06/30/17 07:00 Gran # 2.33 (1.4-6.5) 06/30/17 07:00 Lymph # 1.7 (1.2-3.4) 06/30/17 07:00 Yuba # 0.7 (0.1-0.6) H 06/30/17 07:00 Eos # 0.2 (0.0-0.7) 06/30/17 07:00 Baso # 0.04 K/mm3 (0.0-2.0) 06/30/17 07:00 ESR 70 mm/hr (0.0-20.0) H 06/30/17 07:30 Retic Count 1.36 % (0.5-1.5) 07/01/17 13:45 Sodium 138 mmol/L (132-148) 06/30/17 07:00 Potassium 4.3 mmol/L (3.6-5.0) 06/30/17 07:00 Chloride 104 mmol/L (98-107) 06/30/17 07:00 Carbon Dioxide 26 mmol/L (21-33) 06/30/17 07:00 Anion Gap 11 (10-20) 06/30/17 07:00 BUN 8 mg/dL (7-21) 06/30/17 07:00 Creatinine 0.7 mg/dl (0.7-1.2) 06/30/17 07:00 Est GFR ( Amer) > 60 06/30/17 07:00 Est GFR (Non-Af Amer) > 60 06/30/17 07:00 Random Glucose 84 mg/dL (70-110) 06/30/17 07:00 Calcium 9.4 mg/dL (8.4-10.5) 06/30/17 07:00 Phosphorus 4.7 mg/dL (2.5-4.5) H 06/26/17 06:30 Magnesium 1.9 mg/dL (1.7-2.2) 06/26/17 06:30 Total Bilirubin 0.4 mg/dL (0.2-1.3) 06/30/17 07:00 AST 31 U/L (14-36) 06/30/17 07:00 ALT 40 U/L (7-56) 06/30/17 07:00 Alkaline Phosphatase 73 U/L (38-126) 06/30/17 07:00 Total Creatine Kinase 54 U/L (35-230) 06/26/17 06:30 C-React Prot High Sens 2.62 mg/L (1.00-3.00) 06/28/17 06:30 Total Protein 8.5 g/dL (5.8-8.3) H 06/30/17 07:00 Albumin 3.8 g/dL (3.0-4.8) 06/30/17 07:00 Globulin 4.7 gm/dL 06/30/17 07:00 Albumin/Globulin Ratio 0.8 (1.1-1.8) L 06/30/17 07:00 Vitamin B12 545 pg/mL (239-931) 06/28/17 06:30 Folate 11.0 ng/mL 06/25/17 06:20 TSH 3rd Generation 1.16 mIU/mL (0.46-4.68) 06/25/17 08:00 Beta HCG, Quant < 2.39 mIU/mL (0-6.15) 06/24/17 20:40 Urine Color Yellow (YELLOW) 06/25/17 06:45 Urine Appearance Clear (CLEAR) 06/25/17 06:45 Urine pH 6.0 (4.7-8.0) 06/25/17 06:45 Ur Specific Picacho 1.025 (1.005-1.035) 06/25/17 06:45 Urine Protein Negative mg/dL (<30 mg/dL) 06/25/17 06:45 Urine Glucose (UA) Negative mg/dL (NEGATIVE) 06/25/17 06:45 Urine Ketones 15 mg/dL (NEGATIVE) H 06/25/17 06:45 Urine Blood Trace-intact (NEGATIVE) H 06/25/17 06:45 Urine Nitrate Negative (NEGATIVE) 06/25/17 06:45 Urine Bilirubin Negative (NEGATIVE) 06/25/17 06:45 Urine Urobilinogen 0.2 E.U./dL (<1 E.U./dL) 06/25/17 06:45 Ur Leukocyte Esterase Trace Jessica/uL (NEGATIVE) H 06/25/17 06:45 Urine RBC 0 - 2 /hpf (0-2) 06/25/17 06:45 Urine WBC 0 - 2 /hpf (0-6) 06/25/17 06:45 Ur Epithelial Cells 4 - 5 /hpf (0-5) 06/25/17 06:45 Urine Bacteria Few (NEG) 06/25/17 06:45 NICOLA Screen Negative (Negative) 06/28/17 06:30 Sm (Rangel) Antibody <1.0 AI (<1.0) 06/28/17 06:30 Anti-Rangel Interpret Negative (Negative) 06/28/17 06:30 SM/SLIDE FORMING MACHINE OPERATOR Antibody <1.0 AI (<1.0) 06/28/17 06:30 Sm/SLIDE FORMING MACHINE OPERATOR Antibody Interp Negative (Negative) 06/28/17 06:30 [id number]-1-[id number] Ab <9 ARLIN (<=20) 06/28/17 06:30 Beta-2 GPI IgG Ab <9 SGU (<=20) 06/28/17 06:30 Beta-2 GPI IgM Ab <9 SMU (<=20) 06/28/17 06:30 Phosphatidylserine IgG <10 U/mL (<10) 06/28/17 06:30 Phosphatidylserine IgA <20 U/mL (<20) 06/28/17 06:30 Phosphatidylserine IgM <25 U/mL (<25) 06/28/17 06:30 RPR Nonreactive (NONREACTIVE) 06/27/17 06:45 T.pallidum Ab (FTA-ABS) Nonreactive (Nonreactive) 06/28/17 06:30 HIV 1&2 Ag/Ab, 4th Gen Nonreactive (Nonreactive) 06/27/17 06:45 WB Flow Cytometry Reference test 06/28/17 06:00 Blood Type O POSITIVE 06/28/17 06:30 Blood Type Confirm O POSITIVE 06/28/17 07:45 Antibody Screen Negative 06/28/17 06:30 BBK History Checked No verified bt 06/28/17 06:30 - Hospital Course Hospital Course: 37 yo F with PMH back pain, presents to the ER by ambulance brought from [facility], complaining of acute inability to walk and hand/foot incoordiantion. It started 06/12/17, which was the last time she was able to walk. She was previously admitted to [facility] where she was evaluated Dr V Rose, MRI brain/CT head, xrays and mri spine were all negative. She was discharged from [facility] about one week ago and sent to [facility] for physical therapy. She reports continued inability to walk or bear weight on her legs beyond a few seconds. She denies any headache, vision changes, numbness, parasthesias. She denies recent illness, travel, sick contacts, bug bites. She also denies any major life changes or new stressors. She is complaining of back spasms that radiate from her head all the way to her toes, which she has had before, though is occuring more frequently; she went to rehab for this a year ago. She denies any fever, chills, nausea, vomiting, diarrhea, chest pain, shortness of breath, abdominal pain, dysuria, hematuria, joint pains, confusion, depression/anxiety, trouble sleeping, heat/cold intolerance, urinary/bowel incontinence, saddle anaesthesia. In hospital, cbc, cmp, serologies for HIV, synphilis, antiphospholipid syndrome, and other II workup was negative. MRI spine showed multilevel cervical disc herniations and lumbar spine canal stenosis. Lumbar spine with gadolinium contrast did not show any demyelinating lesions. She refused Lumbar puncture. She empirically received 3 days IVIG, however, with no improvement of her symptoms. She refused Flexeril initially for her muscle spasms, and used ibuprofen for her pain. PT rolandal recommended [facility], and is therefore transfered to [facility]. Discharge Exam - Additional Findings Additional findings: - Head Exam Head Exam: ATRAUMATIC, NORMOCEPHALIC - Eye Exam Eye Exam: EOMI, PERRL. absent: Conjunctival injection, Scleral icterus Pupil Exam: PERRL - ENT Exam ENT Exam: Mucous Membranes Moist - Respiratory Exam Respiratory Exam: Clear to Ausculation Bilateral. absent: Accessory Muscle Use , Chest Wall Tenderness, Respiratory Distress - Cardiovascular Exam Cardiovascular Exam: RRR, +S1, +S2. absent: Murmur - GI/Abdominal Exam GI & Abdominal Exam: Soft, Normal Bowel Sounds. absent: Distended, Guarding, Tenderness, Organomegaly, Rebound - Extremities Exam Extremities Exam: absent: Calf Tenderness, Pedal Edema - Back Exam Back Exam: NORMAL INSPECTION - Neurological Exam Neurological Exam: Alert, Awake, CN II-XII Intact, Oriented x3 Neuro motor strength exam: Left Upper Extremity: 5, Right Upper Extremity: 5, Left Lower Extremity: 5, Right Lower Extremity: 5 Additional comments: difficult grasping and incoordinating movements of her fingers (unchanged from previous exams). Sensation intact, propioception grossly intact b/l - Psychiatric Exam Psychiatric exam: Normal Affect, Normal Mood - Skin Skin Exam: Dry, Normal Color, Warm Discharge Plan - Follow Up Plan Condition: STABLE Disposition: REHAB FACILITY/REHAB UNIT Patient education suggested?: Yes Instructions: Low Back Strain (GEN), Lumbar Spinal Stenosis (DC), Cervical Disc Herniation (DC), Lumbar Radiculopathy (GEN), Weakness (GEN), Back Pain (GEN ) Additional Instructions: - You are going back to subacute rehab to continue with your physical therapy. - You can take Flexeril for muscle spasms, colace and miralax for constipation. - Please return to the hospital if any concerns. Referrals: Carlos Ogden MD [Primary Care Provider] - <Russ Agarwal - Last Filed: 07/01/17 17:46> Provider - Provider Date of Admission: 06/26/17 14:02 Attending physician: Russ Agarwal MD Primary care physician: Carlos Ogden MD Hospital Course - Lab Results Lab Results: Micro Results 06/27/17 22:45 Blood Blood Culture - Preliminary NO GROWTH AFTER 3 DAYS 06/27/17 22:30 Blood Blood Culture - Preliminary NO GROWTH AFTER 3 DAYS Most Recent Lab Values WBC 5.0 10^3/ul (4.5-11.0) 06/30/17 07:00 RBC 3.44 10^6/uL (3.5-6.1) L 06/30/17 07:00 Hgb 11.8 g/dL (12.0-16.0) L 06/30/17 07:00 Hct 35.5 % (36.0-48.0) L 06/30/17 07:00 MCV 103.2 fl (80.0-105.0) 06/30/17 07:00 MCH 34.3 pg (25.0-35.0) 06/30/17 07:00 MCHC 33.2 g/dl (31.0-37.0) 06/30/17 07:00 RDW 13.7 % (11.5-14.5) 06/30/17 07:00 Plt Count 332 10^3/uL (120.0-450.0) 06/30/17 07:00 MPV 10.5 fl (7.0-11.0) 06/30/17 07:00 Gran % 47.0 % (50.0-68.0) L 06/30/17 07:00 Lymph % (Auto) 34.1 % (22.0-35.0) 06/30/17 07:00 Yuba % (Auto) 14.9 % (1.0-6.0) H 06/30/17 07:00 Eos % (Auto) 3.2 % (1.5-5.0) 06/30/17 07:00 Baso % (Auto) 0.8 % (0.0-3.0) 06/30/17 07:00 Gran # 2.33 (1.4-6.5) 06/30/17 07:00 Lymph # 1.7 (1.2-3.4) 06/30/17 07:00 Yuba # 0.7 (0.1-0.6) H 06/30/17 07:00 Eos # 0.2 (0.0-0.7) 06/30/17 07:00 Baso # 0.04 K/mm3 (0.0-2.0) 06/30/17 07:00 ESR 70 mm/hr (0.0-20.0) H 06/30/17 07:30 Retic Count 1.36 % (0.5-1.5) 07/01/17 13:45 Sodium 138 mmol/L (132-148) 06/30/17 07:00 Potassium 4.3 mmol/L (3.6-5.0) 06/30/17 07:00 Chloride 104 mmol/L (98-107) 06/30/17 07:00 Carbon Dioxide 26 mmol/L (21-33) 06/30/17 07:00 Anion Gap 11 (10-20) 06/30/17 07:00 BUN 8 mg/dL (7-21) 06/30/17 07:00 Creatinine 0.7 mg/dl (0.7-1.2) 06/30/17 07:00 Est GFR ( Amer) > 60 06/30/17 07:00 Est GFR (Non-Af Amer) > 60 06/30/17 07:00 Random Glucose 84 mg/dL (70-110) 06/30/17 07:00 Calcium 9.4 mg/dL (8.4-10.5) 06/30/17 07:00 Phosphorus 4.7 mg/dL (2.5-4.5) H 06/26/17 06:30 Magnesium 1.9 mg/dL (1.7-2.2) 06/26/17 06:30 Total Bilirubin 0.4 mg/dL (0.2-1.3) 06/30/17 07:00 AST 31 U/L (14-36) 06/30/17 07:00 ALT 40 U/L (7-56) 06/30/17 07:00 Alkaline Phosphatase 73 U/L (38-126) 06/30/17 07:00 Total Creatine Kinase 54 U/L (35-230) 06/26/17 06:30 C-React Prot High Sens 2.62 mg/L (1.00-3.00) 06/28/17 06:30 Total Protein 8.5 g/dL (5.8-8.3) H 06/30/17 07:00 Albumin 3.8 g/dL (3.0-4.8) 06/30/17 07:00 Globulin 4.7 gm/dL 06/30/17 07:00 Albumin/Globulin Ratio 0.8 (1.1-1.8) L 06/30/17 07:00 Aldolase 5.5 U/L (<=8.1) 06/28/17 06:30 Vitamin B12 545 pg/mL (239-931) 06/28/17 06:30 Folate 11.0 ng/mL 06/25/17 06:20 TSH 3rd Generation 1.16 mIU/mL (0.46-4.68) 06/25/17 08:00 Beta HCG, Quant < 2.39 mIU/mL (0-6.15) 06/24/17 20:40 Urine Color Yellow (YELLOW) 06/25/17 06:45 Urine Appearance Clear (CLEAR) 06/25/17 06:45 Urine pH 6.0 (4.7-8.0) 06/25/17 06:45 Ur Specific Picacho 1.025 (1.005-1.035) 06/25/17 06:45 Urine Protein Negative mg/dL (<30 mg/dL) 06/25/17 06:45 Urine Glucose (UA) Negative mg/dL (NEGATIVE) 06/25/17 06:45 Urine Ketones 15 mg/dL (NEGATIVE) H 06/25/17 06:45 Urine Blood Trace-intact (NEGATIVE) H 06/25/17 06:45 Urine Nitrate Negative (NEGATIVE) 06/25/17 06:45 Urine Bilirubin Negative (NEGATIVE) 06/25/17 06:45 Urine Urobilinogen 0.2 E.U./dL (<1 E.U./dL) 06/25/17 06:45 Ur Leukocyte Esterase Trace Jessica/uL (NEGATIVE) H 06/25/17 06:45 Urine RBC 0 - 2 /hpf (0-2) 06/25/17 06:45 Urine WBC 0 - 2 /hpf (0-6) 06/25/17 06:45 Ur Epithelial Cells 4 - 5 /hpf (0-5) 06/25/17 06:45 Urine Bacteria Few (NEG) 06/25/17 06:45 NICOLA Screen Negative (Negative) 06/28/17 06:30 Sm (Rangel) Antibody <1.0 AI (<1.0) 06/28/17 06:30 Anti-Rangel Interpret Negative (Negative) 06/28/17 06:30 SM/SLIDE FORMING MACHINE OPERATOR Antibody <1.0 AI (<1.0) 06/28/17 06:30 Sm/SLIDE FORMING MACHINE OPERATOR Antibody Interp Negative (Negative) 06/28/17 06:30 Hmaj-0-Ietnsguwtkzj Ab <9 ARLIN (<=20) 06/28/17 06:30 Beta-2 GPI IgG Ab <9 SGU (<=20) 06/28/17 06:30 Beta-2 GPI IgM Ab <9 SMU (<=20) 06/28/17 06:30 Phosphatidylserine IgG <10 U/mL (<10) 06/28/17 06:30 Phosphatidylserine IgA <20 U/mL (<20) 06/28/17 06:30 Phosphatidylserine IgM <25 U/mL (<25) 06/28/17 06:30 RPR Nonreactive (NONREACTIVE) 06/27/17 06:45 T.pallidum Ab (FTA-ABS) Nonreactive (Nonreactive) 06/28/17 06:30 HIV 1&2 Ag/Ab, 4th Gen Nonreactive (Nonreactive) 06/27/17 06:45 WB Flow Cytometry Reference test 06/28/17 06:00 Blood Type O POSITIVE 06/28/17 06:30 Blood Type Confirm O POSITIVE 06/28/17 07:45 Antibody Screen Negative 06/28/17 06:30 BBK History Checked No verified bt 06/28/17 06:30 Attending/Attestation - Attestation I have personally seen and examined this patient.: Yes I have fully participated in the care of the patient.: Yes I have reviewed all pertinent clinical information, including history, physical exam and plan: Yes Notes (Text): 07/01/17 17:46 Patient was seen and examined with faculty i on call medical assistant. Agreed with resident assessment and plan. 37 yrs old Female was admitted with ataxia.She was previously worked up at [facility] and then was discharged to [facility] from where she was referred due to persistent symptoms.CT head and MRI brain were negative for acute findings. CT spine showed L4-L5 spinal canal stenosis. Patient has normal power in both upper and lower extremities.There is no sensory lose.MRI of spines is negative for any demylination lesion or any other acute abnormalities.Patient case was discussed with Neurology.She will be discharged back to [facility] for physical therapy and rehabilitation. Management plan was discussed in detail with patient Education was provided.
[2017-07-01 21:58] LABS: CARDIOLIPIN AB (IGA) <11 APL (<=11)
--- NOTE | 2017-07-02 01:24 | PN ---
DATE: 07/01/2017 SUBJECTIVE: The patient was seen early this morning, and no fevers and no chills. PHYSICAL EXAMINATION: VITAL SIGNS: Temperature is 98, blood pressure is 120/70, respiratory rate of 16. HEENT: Unremarkable. NECK: Supple. LUNGS: Have decreased breath sounds. HEART: Normal S1, S2. ABDOMEN: Soft and nontender. LABORATORY EXAMINATION: Reveals the patient has a white count of 5, sed rate is 70, and hemoglobin of 11. MCV of 103. Chemistry is noted. TSH level is noted at 1.16. Urinalysis is noted. NICOLA screen is negative. Anti-Rangel antibody is negative and Rangel-CRYOLITE RECOVERY OPERATOR antibody is negative. The patient's HIV is negative. PCR is negative, and RPR and FTA are negative. Flow cytometry is pending. The blood cultures are negative. Review of orders revealed the patient not to be on antibiotics. The patient had lumbar spine MRI; mild stenosis of L4 and L5, facet arthropathy of lower lumbar spine. The patient had peripheral blood, no evidence of increasing black cells, however, abnormal myeloid maturation is present. No evidence of clonal B cells or abnormal T cell population. 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 The patient has refused the spinal tap and . Ricardo Evans MD
[2017-07-02 06:03] LABS: HEMATOCRIT 39.2 % (35.0-45.0); HEMOGLOBIN 12.8 g/dL (11.7-15.5); RDW 16.2 % (11.0-15.0)
[2017-07-02 06:05] VITALS: RESP 20
[2017-07-02 08:40] VITALS: BP 154/94; PULSE 66; TEMP 98.9; O2SAT 99
--- NOTE | 2017-07-02 19:30 | CON ---
HEMATOLOGY CONSULTATION DATE: HISTORY OF PRESENT ILLNESS: This is a 37-year-old woman, who is admitted for back pain and has extensive evaluation for this back pain radiating down to her legs. They asked me to see her for Hematology evaluation, and I saw the patient at the bedside with mother. PHYSICAL EXAMINATION: SKIN: No petechiae. No bruises. HEENT: Anicteric. NODES: Nonpalpable in axillary, cervical, supraclavicular, or inguinal regions. LUNGS: Clear at present. No vertebral tenderness. HEART: S1 and S2. ABDOMEN: Shows no liver, no spleen, no tenderness. EXTREMITIES: No edema. 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 Hematologically, there are 2 issues here: 1. The hemoglobin is fluctuating between here 11.8 and 12.4, but the MCV has been about 102 to 104 with an MCH about 34 to 35. The issues here are why she has the elevated MCV. 1. Rule out B12 deficiency, B12 is 545. 2. Reticulocyte count is elevated. Reticulocyte count is 1.3, which is unclear why she has this. She could have hemoglobinopathy with erythrocytosis. The hemoglobin electrophoresis is pending. When I look at a peripheral smear, I could not see polychromasia or increased microspherocytes or schistocytes. So, at this point, we are going to observe this and await further test that was sent. 2. The patient has white count of about 5 and her monocyte count has been going from 8.7 to 14.9 and her leukocyte count 41% to 34% with a total of about 50% of the leukocytes and monocytes. Again on peripheral smear, I do not see abnormal increased leukocytes, no smudge cells in the monocytes or there were no Lulu cells. We sent off a flow cytometry to make sure these cells are normal and that has not returned back yet. Both of these issues are, I do not think, relating to her issue which is the back pain, and I told the mother and the patient when the results come, we would try to let her primary care doctor know. Daron Colunga MD
--- NOTE | 2017-07-02 19:43 | PN ---
DATE: 07/02/2017 SUBJECTIVE: The patient is in bed, in no acute distress, nontoxic. PHYSICAL EXAMINATION HEENT: Unremarkable. NECK: Supple. LUNGS: Have decreased breath sounds. HEART: Normal S1, S2. ABDOMINAL: Soft. LABORATORY DATA: Noted and the patient's hemoglobin is 11 with MCV of 103. Microbiology reveals the cultures are negative. ASSESSMENT AND PLAN: This is a 37-year-old female was seen earlier today with morbid obesity, BMI of 42 with a macrocytic anemia with MCV of 105, yesterday is 103 with questionable ataxia. Currently off of antibiotics and Neurology to follow the patient for the ataxia. MRI of the head is noted to be negative. The patient is not had a spinal tap and we will follow with you. No evidence of an active infection at this time. Ricardo Evans MD
[2017-07-03 03:26] LABS: HEMOGLOBIN F <1.0 Percent (<2.0)
--- NOTE | 2017-07-03 18:49 | CON ---
DATE: 07/02/2017 She is being seen today in consultation. PRESENTATION: The patient was seen at bedside. She is an female, who is obese. The patient is pleasant when encountered. She indicates that she came from [facility] because she was falling down and they wanted to evaluate whether or not the situation that brought her in there was worsening. The history is that she evidently fell in 05/2017, fell backwards and hit her head and started to have problems standing and walking a period of time after that and by 06/12/2017, was unable to weight bear all the time. So she has been under treatment for this. She is in the rehabilitation portion of the [facility]. Psychiatric consult was called. She see whether there was any psychiatric disturbance going on with this patient, which may be contributing to her medical condition. The patient indicates that she was alone. She has never been , has no children. Has a big support system. She has a lot of friends and her parents are alive. She has a brother and a sister with them. She is not close. She indicates that she had happy childhood and she grow up in [place]. She went to [employer] and completed degree in Psychology. 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 She denies any use of drugs or alcohol. She denies any psychiatry history in terms of seeing a psychiatrist, being hospitalized, having any suicidal thoughts or inclinations. She initial states she has never been on any psychiatric medication, but it seems that one of the doctor's when she was trying to find out what is going on with her physically with her walking difficulties had put her on gabapentin and Risperdal, both of which were discontinued, but she had some what sounds like some involuntary movements following going off of those medications. She does not think that there is any reason for her to be in therapy or to have any psychiatric treatment at this time. She is being discharged and returning to [facility]. She feels frustrated that there have been "no answers in regards to why she is having this mobility difficulty." MENTAL STATUS EXAM: The patient is alert and oriented x3. Eye contact is good. Behavior is cooperative. Speech rate and volume are within normal limits. Mood is euthymic. Affect is full. Thoughts are at times goal directed, but more often circumstantial and tangential. She denies being suicidal or homicidal. She denies the presence of hallucinations, delusions, or paranoia. Her concentration and her focus, she reports are perfectly normal. Her memory both short and long-term appears to be adequate. Her appetite and her sleep, she reports are normal. In terms of reviewing her labs currently, her red blood cells, hemoglobin and hematocrit as of the are running a little bit low at 3.44 for the RBCs, the hemoglobin was 11.8 and hematocrit was 35.5. Additionally, her blood culture had no growth after 5 days and in terms of her workup for this problem of not being able to stand and walk. She has had a chest x-ray, a head CT, a lumbar spine CT, a brain MRI, a cervical spine MRI, 2 of them, 2 lumbar spine MRI, 2 thoracic spine MRIs to see if there was any progressive changes overtime. A lumbar spine MRI, there were really no definitive findings in terms of her clinical pictures. DIAGNOSTIC IMPRESSION: Adjustment disorder with anxiety, obesity, and ataxia. PLAN: The patient is psychiatrically clear at this time, she is in no imminent danger of hurting herself or anyone else and has no symptoms of psychosis. She will be discharged back to [facility] for physical therapy and rehabilitation. Thank you for this consult. This case was reviewed with Dr. Pedraza. Gertrudis Majano APN
== END 2017-07-02 21:27 | DRG 560 ==
LOC: ED 19:30 → ERH 06-25 02:17 → 5RNO 06-25 04:03 → OBSVTOIN 06-26 14:02
PROVIDERS: ADMIT Internal Medicine; ATTEND Internal Medicine
DX: M50.221 Other cervical disc displacement at C4-C5 level (principal); G82.50 Quadriplegia, unspecified; E53.8 Deficiency of other specified B group vitamins; D53.9 Nutritional anemia, unspecified; M50.222 Other cervical disc displacement at C5-C6 level; M50.223 Other cervical disc displacement at C6-C7 level; E66.01 Morbid (severe) obesity due to excess calories; Z68.41 Body mass index [BMI] 40.0-44.9, adult; F40.240 Claustrophobia; K59.00 Constipation, unspecified; M19.90 Unspecified osteoarthritis, unspecified site; M48.061 Spinal stenosis, lumbar region without neurogenic claudication; Z53.29 Procedure and treatment not carried out because of patient's decision for other reasons; Z88.1 Allergy status to other antibiotic agents; R40.2412 Glasgow coma scale score 13-15, at arrival to emergency department